=== PATIENT | male | born 1930 | race Hispanic/Latino ===

== ENCOUNTER 2017-03-06 14:18 | Inpatient (IN) | payer MEDICARE, BC ==
[2017-03-06 18:29] VITALS: BMI 30.4
--- NOTE | 2017-03-06 20:02 | CP.PCM.HP ---
Addendum entered and electronically signed by Kathy Triplett MD 03/06/17 23:44: Watery Diarrheas -f/u C-diff toxin -afebrile, vital signs wnl -f/u BMP Original Note: <Kathy Triplett - Last Filed: 03/06/17 23:16> History of Present Illness - History of Present Illness History of Present Illness: 87 y/o M with PMHx of HTN, Macular degeneration, and TIA who was transferred from [facility] for rehabilitation. On Feb, while patient went to ER at [facility] to see his wifehe was c/o anxiety and chest heavyness. Pt was found to be in HTN emergency with elevated troponin, SR with LBBB and discordant ST elevation in V1, V2. Pt had a cardiac cath, and now is s/p NATHAN to prox LAD on 03/02/17. Patient was transferred to our acute reyes center for further management of current medical condition. Patient was seen and examined at bedside. Patient was seen alert, oriented x 3, and denies cp, SOB, abd pain, N/V, urinary symptoms, dizziness. Patient reports approximately 6 daily watery nonbloody diarrheas since Sunday while he was admitted in prior hospital, denies associated symptoms. PMD: Dr. Vazquez Present on Admission - Present on Admission Any Indicators Present on Admission: No History of DVT/PE: No History of Uncontrolled Diabetes: No Urinary Catheter: No Decubitus Ulcer Present: No Review of Systems - Review of Systems All systems: reviewed and no additional remarkable complaints except (as per HPI ) Past Patient History - Past Medical History & Family History Past Medical History?: Yes - Past Social History Smoking Status: Never Smoked - CARDIAC Hx Congestive Heart Failure: Yes Hx Hypertension: Yes - RENAL Hx Chronic Kidney Disease: No Hx Dialysis: No - HEMATOLOGICAL/ONCOLOGICAL Hx AIDS: No Hx Human Immunodeficiency Virus (HIV): No - MUSCULOSKELETAL/RHEUMATOLOGICAL Hx Falls: No Hx Unsteady Gait: Yes - PSYCHIATRIC Hx Substance Use: No - ANESTHESIA Hx Anesthesia: No Hx Anesthesia Reactions: No Meds Allergies/Adverse Reactions: Allergies Allergy/AdvReac Type Severity Reaction Status Date / Time buspirone [From BuSpar] Allergy RASH Verified 03/06/17 15:27 Penicillins Allergy URTICARIA Verified 03/06/17 15:27 Physical Exam - Constitutional Appears: Non-toxic, No Acute Distress - Eye Exam Eye Exam: Normal appearance - ENT Exam ENT Exam: Mucous Membranes Moist - Respiratory Exam Respiratory Exam: Clear to Auscultation Bilateral, NORMAL BREATHING PATTERN - Cardiovascular Exam Cardiovascular Exam: REGULAR RHYTHM, RRR, +S1, +S2 - GI/Abdominal Exam GI & Abdominal Exam: Normal Bowel Sounds, Soft. absent: Distended, Guarding, Rigid, Tenderness - Extremities Exam Extremities exam: Positive for: pedal edema (pitting 1+ in lower extremitiesz). Negative for: calf tenderness - Back Exam Back exam: NORMAL INSPECTION. absent: CVA tenderness (L), CVA tenderness (R) - Neurological Exam Neurological exam: Alert, CN II-XII Intact, Oriented x3 - Psychiatric Exam Psychiatric exam: Normal Affect, Normal Mood - Skin Skin Exam: Dry, Intact, Normal Color Results - Vital Signs Recent Vital Signs: Last Vital Signs Temp 98.0 F 03/06/17 20:01 Pulse 67 03/06/17 20:01 Resp 18 03/06/17 20:01 BP 143/76 03/06/17 20:01 Pulse Ox 98 03/06/17 20:01 Assessment & Plan - Assessment and Plan (Free Text) Assessment: 87 y/o M s/p Anterior STEMI, s/p NATHAN to prox LAD being admitted for rehabilitation. Plan: Gait abnormality and weakness -Acute rehab -PT/OT evaluation and treatment Anterior STEMI s/p NATHAN to prox LAD -stable -c/w aspirin 81 mg -c/w ticagretol 90 mg BID c/w atorvastatin 80 mg -c/w carvedilol 25 mg BID -c/w Lisinopril 20 mg BID -heart healthy diet HTN -chronic, controlled -c/w discharge meds -c/w amlodipine 10 mg CHF -No in exacerbation -c/w Furosemide 40 mg H/O TIA -chronic -asymptomatic -c/w aspirin DVT prophylaxis -lovenox 40 mg SC - Date & Time Date: 03/06/17 Time: 20:20 <Charly Vazquez - Last Filed: 03/07/17 07:01> Results - Vital Signs Recent Vital Signs: Last Vital Signs Temp 98.0 F 03/06/17 20:01 Pulse 67 03/06/17 22:04 Resp 18 03/06/17 20:01 BP 143/76 03/06/17 22:04 Pulse Ox 98 03/06/17 20:01 - Labs Result Diagrams: 03/07/17 05:25 03/07/17 05:25 Labs: Laboratory Results - last 24 hr 03/07/17 03/07/17 05:25 05:25 WBC 9.6 RBC 4.39 L Hgb 13.7 Hct 40.3 MCV 91.8 MCH 31.3 H MCHC 34.1 RDW 13.6 Plt Count 221 Sodium 141 Potassium 3.7 Chloride 107 Carbon Dioxide 24 Anion Gap 14 BUN 25 H Creatinine 1.5 Est GFR ( Amer) 53 Est GFR (Non-Af Amer) 44 Random Glucose 88 Calcium 8.3 L Attending/Attestation - Attestation I have personally seen and examined this patient.: Yes I have fully participated in the care of the patient.: Yes I have reviewed all pertinent clinical information: Yes
[2017-03-07 06:30] LABS: HEMATOCRIT 40.3 % (35.0-51.0); MEAN CELL VOLUME 91.8 fl (80.0-94.0); MEAN CORPUSCULAR HEMOGLOBIN 31.3 pg (27.0-31.0); MEAN CORPUSCULAR HGB CONC 34.1 g/dL (33.0-37.0); RED CELL DISTRIBUTION WIDTH 13.6 % (11.5-14.5); WHITE BLOOD COUNT 9.6 K/uL (4.8-10.8)
[2017-03-07 06:47] LABS: CALCIUM 8.3 mg/dL (8.4-10.2); POTASSIUM 3.7 MMOL/L (3.6-5.0)
--- NOTE | 2017-03-07 08:24 | CP.PCM.PN ---
<DarellJoseph - Last Filed: 03/07/17 10:47> Subjective - Date & Time of Evaluation Date of Evaluation: 03/07/17 Time of Evaluation: 07:20 - Subjective Subjective: 87 y/o M admitted last night to subacute rehab for cardiac rehab s/p IN. Patient seen at bedside in not acute distress. Denies CP, SOB, palpitations. He c/o R/hip, thigh weakness that is chronic. His ambulation was limited before IN due to chronic LE weakness. Tolerating PO. Had been having watery diarrheas on admission and C.Diff toxine is pending. Objective - Vital Signs/Intake and Output Vital Signs (last 24 hours): Temp Pulse Resp BP Pulse Ox 98.0 F 67 18 143/76 98 03/06/17 20:01 03/06/17 22:04 03/06/17 20:01 03/06/17 22:04 03/06/17 20:01 - Medications Medications: Current Medications Amlodipine Besylate (Norvasc) 10 mg PO DAILY [facility] Aspirin (Ecotrin) 81 mg PO DAILY [facility] Atorvastatin Calcium (Lipitor) 80 mg PO HS [facility] Last Admin: 03/06/17 22:03 Dose: 80 mg Carvedilol (Coreg) 25 mg PO BID [facility] Enoxaparin Sodium (Lovenox) 40 mg SC DAILY [facility] PRN Reason: Protocol Furosemide (Lasix) 40 mg PO DAILY [facility] Lisinopril (Zestril) 20 mg PO Q12 [facility] Last Admin: 03/06/17 22:04 Dose: 20 mg Pantoprazole Sodium (Protonix Ec Tab) 40 mg PO DAILY [facility] Ticagrelor (Brilinta) 90 mg PO Q12 [facility] Last Admin: 03/06/17 22:03 Dose: 90 mg - Labs Labs: 03/07/17 05:25 03/07/17 05:25 - Constitutional Appears: Non-toxic - Eye Exam Eye Exam: EOMI - ENT Exam ENT Exam: Mucous Membranes Moist - Respiratory Exam Respiratory Exam: Clear to Ausculation Bilateral, NORMAL BREATHING PATTERN. absent: Rales, Wheezes - Cardiovascular Exam Cardiovascular Exam: REGULAR RHYTHM, +S1, +S2 - GI/Abdominal Exam GI & Abdominal Exam: Soft, Normal Bowel Sounds. absent: Tenderness - Extremities Exam Extremities Exam: Full ROM, Normal Capillary Refill - Neurological Exam Neurological Exam: Alert, Awake, Oriented x3 Neuro motor strength exam: Left Upper Extremity: 4, Right Upper Extremity: 4, Left Lower Extremity: 3, Right Lower Extremity: 3 - Psychiatric Exam Psychiatric exam: Normal Affect, Normal Mood - Skin Skin Exam: Normal Color, Warm Assessment and Plan - Assessment and Plan (Free Text) Assessment: 87 y/o M s/p Anterior STEMI, s/p NATHAN to prox LAD being admitted for rehabilitation. Cardiac rehab S/P IN -Acute rehab -PT/OT evaluation and treatment -Physiatry consulted. Will f/u recs Anterior STEMI s/p drug eluting stent placement to prox LAD -stable -c/w aspirin 81 mg -c/w ticagretol 90 mg BID -c/w atorvastatin 80 mg -c/w carvedilol 25 mg BID -c/w Lisinopril 20 mg BID -heart healthy diet -Cardiology consulted(Titi Ladd). Will follow recs. HTN -chronic, controlled -c/w amlodipine 10 mg daily and lisinopril 20 mg BID Hx of CHF Unknown type. On Furosemide PO F/U Echocardiogram DVT prophylaxis -lovenox 40 mg SC <Charly Vazquez A - Last Filed: 03/12/17 16:41> Objective - Vital Signs/Intake and Output Vital Signs (last 24 hours): Temp Pulse Resp BP Pulse Ox 98.1 F 55 L 20 145/75 98 03/12/17 08:50 03/12/17 16:13 03/12/17 08:50 03/12/17 08:50 03/12/17 16:13 - Medications Medications: Current Medications Aspirin (Ecotrin) 81 mg PO DAILY [facility] Last Admin: 03/12/17 08:43 Dose: 81 mg Atorvastatin Calcium (Lipitor) 80 mg PO HS [facility] Last Admin: 03/11/17 21:24 Dose: 80 mg Carvedilol (Coreg) 25 mg PO BID@0900,2100 [facility] Last Admin: 03/12/17 08:44 Dose: 25 mg Enoxaparin Sodium (Lovenox) 40 mg SC DAILY [facility] PRN Reason: Protocol Last Admin: 03/12/17 08:42 Dose: 40 mg Lisinopril (Zestril) 20 mg PO DAILY [facility] Last Admin: 03/12/17 08:43 Dose: 20 mg Pantoprazole Sodium (Protonix Ec Tab) 40 mg PO DAILY [facility] Last Admin: 03/12/17 08:43 Dose: 40 mg Ticagrelor (Brilinta) 90 mg PO Q12 [facility] Last Admin: 03/12/17 08:43 Dose: 90 mg - Labs Labs: 03/11/17 05:30 03/11/17 05:30 Attending/Attestation - Attestation I have personally seen and examined this patient.: Yes I have fully participated in the care of the patient.: Yes I have reviewed all pertinent clinical information, including history, physical exam and plan: Yes
[2017-03-07] MEDS: Pantoprazole 40 mg EC Tab PO SCH (09:08)
[2017-03-07] MEDS: Enoxaparin 40 mg Syringe SC SCH (10:26)
--- NOTE | 2017-03-07 12:17 | CP.PCM.CON ---
History of Present Illness - History of Present Illness History of Present Illness: This 87- year-old man had urgently summoned an ambulance to take his to the emergency room when she started to develop cerebrovascular accident. He followed her to the emergency room where xu Putnam remarked that he looked very anxious and recommended that he have an electrocardiogram. In a very short period of time he found himself having a coronary angiogram and subsequently had left anterior descending artery stented. The patient denies having experienced any chest pain. He does admit to feeling anxious at the time of arriving in the emergency room since his had just been brought in. The patient gives history of being hypertensive for more than 8 or 9 years and has taken medications regularly. He gives history of having had fainting episodes approximately 8 or 10 years back and again approximately 6 years back. The patient uses a cane and a crutch to get around. He also gives history of having been told of a transient ischemic episode though no motor or speech deficit ever occurred. He has never been a smoker or diabetic and has never suffered a prior myocardial infarction or symptoms of congestive cardiac failure. His mother was a diabetic and had had cardiac issues. The patient was seen in the acute rehabilitation section of the hospital. He was alert awake over and afebrile and was able to lie virtually flat and carry on a conversation. His heart rate was 64 bpm regular and his blood pressure was 164/80 mmHg. His jugular venous pressure was not elevated and there was no edema over his lower extremities. His pedal pulses were feeble but distinctive present. There were no carotid bruits. His extremities are warm. His nailbeds were pink. The apex was not palpable. The first and second heart sounds were normal. There was no murmur or gallop. There were no rales. Electrocardiogram taken at 11 AM on february showed sinus rhythm with a left bundle branch block with attendant ST-T abnormalities secondary to it. The patient subsequently underwent coronary stenting at 4 PM the same day. Today 's labs show marginally elevated troponin. Impression: Recent coronary stenting in a patient with left bundle branch block and atypical presentation (??) And elevated troponin 5 days following PCI. History of hypertension and ? TIA. Patient's labs from his emergency room visit will be evaluated to find out if troponins were elevated prior to PCI. It is very likely that the elevated troponins represent myocyte injury during PCI. An echocardiogram will be obtained to evaluate his left ventricular systolic function and to figure out if he needs continued furosemide. At this point is hemodynamically stable. Past Patient History - Past Medical History & Family History Past Medical History?: Yes - Past Social History Smoking Status: Never Smoked - CARDIAC Hx Congestive Heart Failure: Yes Hx Hypertension: Yes - RENAL Hx Chronic Kidney Disease: No Hx Dialysis: No - HEMATOLOGICAL/ONCOLOGICAL Hx AIDS: No Hx Human Immunodeficiency Virus (HIV): No - MUSCULOSKELETAL/RHEUMATOLOGICAL Hx Falls: No Hx Unsteady Gait: Yes - PSYCHIATRIC Hx Substance Use: No - ANESTHESIA Hx Anesthesia: No Hx Anesthesia Reactions: No Meds Allergies/Adverse Reactions: Allergies Allergy/AdvReac Type Severity Reaction Status Date / Time buspirone [From BuSpar] Allergy RASH Verified 03/06/17 15:27 Penicillins Allergy URTICARIA Verified 03/06/17 15:27 - Medications Medications: Current Medications Amlodipine Besylate (Norvasc) 10 mg PO DAILY [facility] Last Admin: 03/07/17 09:07 Dose: 10 mg Aspirin (Ecotrin) 81 mg PO DAILY [facility] Last Admin: 03/07/17 09:06 Dose: 81 mg Atorvastatin Calcium (Lipitor) 80 mg PO HS [facility] Last Admin: 03/06/17 22:03 Dose: 80 mg Carvedilol (Coreg) 25 mg PO BID [facility] Last Admin: 03/07/17 09:06 Dose: 25 mg Enoxaparin Sodium (Lovenox) 40 mg SC DAILY [facility] PRN Reason: Protocol Furosemide (Lasix) 40 mg PO DAILY [facility] Last Admin: 03/07/17 09:06 Dose: 40 mg Lisinopril (Zestril) 20 mg PO Q12 [facility] Last Admin: 03/07/17 09:07 Dose: 20 mg Pantoprazole Sodium (Protonix Ec Tab) 40 mg PO DAILY [facility] Last Admin: 03/07/17 09:08 Dose: 40 mg Ticagrelor (Brilinta) 90 mg PO Q12 [facility] Last Admin: 03/07/17 09:07 Dose: 90 mg Results - Vital Signs Recent Vital Signs: Last Vital Signs Temp 97.9 F 03/07/17 08:28 Pulse 88 03/07/17 09:07 Resp 20 03/07/17 08:28 BP 145/69 03/07/17 09:07 Pulse Ox 97 03/07/17 08:28 - Labs Result Diagrams: 03/07/17 05:25 03/07/17 05:25 Labs: Laboratory Results - last 24 hr 03/07/17 03/07/17 03/07/17 05:25 05:25 10:05 WBC 9.6 RBC 4.39 L Hgb 13.7 Hct 40.3 MCV 91.8 MCH 31.3 H MCHC 34.1 RDW 13.6 Plt Count 221 Sodium 141 Potassium 3.7 Chloride 107 Carbon Dioxide 24 Anion Gap 14 BUN 25 H Creatinine 1.5 Est GFR ( Amer) 53 Est GFR (Non-Af Amer) 44 Random Glucose 88 Calcium 8.3 L Troponin I 0.4160 H*
--- NOTE | 2017-03-07 12:54 | CP.PCM.CON ---
History of Present Illness - History of Present Illness History of Present Illness: Dr Sandhu PMR consultation on Andrew Belcher, born 1930, who has been admitted to [facility] following an admission with NSTEMI surrounding his 's CVA. He had coronary stenting. He has limited function requiring a wheelchair and walker [employer]. He has need for a short acute care stay prior to d/c home. His has been admitted to the unit as well post CVA Review of Systems - Constitutional Constitutional: absent: Anorexia, Chills - EENT Eyes: absent: Change in Vision, Dry Eye Nose/Mouth/Throat: absent: Nasal Congestion - Cardiovascular Cardiovascular: absent: Chest Pain, Claudication - Respiratory Respiratory: absent: Dyspnea - Gastrointestinal Gastrointestinal: absent: Belching, Constipation - Musculoskeletal Musculoskeletal: absent: Back Pain - Integumentary Integumentary: absent: Bleeding Lesions - Neurological Neurological: absent: Abnormal Movements, Radicular Pain Past Patient History - Past Medical History & Family History Past Medical History?: Yes - Past Social History Smoking Status: Never Smoked Alcohol: Occasional Drugs: Denies Home Situation {Lives}: With Family - CARDIAC Hx Congestive Heart Failure: Yes Hx Hypertension: Yes - RENAL Hx Chronic Kidney Disease: No Hx Dialysis: No - HEMATOLOGICAL/ONCOLOGICAL Hx AIDS: No Hx Human Immunodeficiency Virus (HIV): No - MUSCULOSKELETAL/RHEUMATOLOGICAL Hx Falls: No Hx Unsteady Gait: Yes - PSYCHIATRIC Hx Substance Use: No - ANESTHESIA Hx Anesthesia: No Hx Anesthesia Reactions: No Meds Allergies/Adverse Reactions: Allergies Allergy/AdvReac Type Severity Reaction Status Date / Time buspirone [From BuSpar] Allergy RASH Verified 03/06/17 15:27 Penicillins Allergy URTICARIA Verified 03/06/17 15:27 - Medications Medications: Current Medications Amlodipine Besylate (Norvasc) 10 mg PO DAILY [facility] Last Admin: 03/07/17 09:07 Dose: 10 mg Aspirin (Ecotrin) 81 mg PO DAILY [facility] Last Admin: 03/07/17 09:06 Dose: 81 mg Atorvastatin Calcium (Lipitor) 80 mg PO HS [facility] Last Admin: 03/06/17 22:03 Dose: 80 mg Carvedilol (Coreg) 25 mg PO BID [facility] Last Admin: 03/07/17 09:06 Dose: 25 mg Enoxaparin Sodium (Lovenox) 40 mg SC DAILY [facility] PRN Reason: Protocol Last Admin: 03/07/17 10:26 Dose: 40 mg Furosemide (Lasix) 40 mg PO DAILY [facility] Last Admin: 03/07/17 09:06 Dose: 40 mg Lisinopril (Zestril) 20 mg PO Q12 [facility] Last Admin: 03/07/17 09:07 Dose: 20 mg Pantoprazole Sodium (Protonix Ec Tab) 40 mg PO DAILY [facility] Last Admin: 03/07/17 09:08 Dose: 40 mg Ticagrelor (Brilinta) 90 mg PO Q12 [facility] Last Admin: 03/07/17 09:07 Dose: 90 mg Physical Exam - Constitutional Appears: Non-toxic - Head Exam Head Exam: ATRAUMATIC, NORMAL INSPECTION, NORMOCEPHALIC - Eye Exam Eye Exam: EOMI - ENT Exam ENT Exam: Mucous Membranes Moist - Respiratory Exam Respiratory Exam: NORMAL BREATHING PATTERN - Cardiovascular Exam Cardiovascular Exam: REGULAR RHYTHM - GI/Abdominal Exam GI & Abdominal Exam: Normal Bowel Sounds - Extremities Exam Extremities exam: Negative for: calf tenderness, joint swelling - Neurological Exam Neurological exam: Alert, CN II-XII Intact, Oriented x3 - Skin Skin Exam: Warm Results - Vital Signs Recent Vital Signs: Last Vital Signs Temp 97.9 F 03/07/17 08:28 Pulse 88 03/07/17 09:07 Resp 20 03/07/17 08:28 BP 145/69 03/07/17 09:07 Pulse Ox 97 03/07/17 08:28 - Labs Result Diagrams: 03/07/17 05:25 03/07/17 05:25 Labs: Laboratory Results - last 24 hr 03/07/17 03/07/17 03/07/17 05:25 05:25 10:05 WBC 9.6 RBC 4.39 L Hgb 13.7 Hct 40.3 MCV 91.8 MCH 31.3 H MCHC 34.1 RDW 13.6 Plt Count 221 Sodium 141 Potassium 3.7 Chloride 107 Carbon Dioxide 24 Anion Gap 14 BUN 25 H Creatinine 1.5 Est GFR ( Amer) 53 Est GFR (Non-Af Amer) 44 Random Glucose 88 Calcium 8.3 L Troponin I 0.4160 H* Assessment & Plan - Assessment and Plan (Free Text) Assessment: PT/OT to continue to help increase functional independence Team conference for d/c planning Pain: controlled Vascular: no evidence of DVT GI: No evidence of constipation or diarrhea Patient is an excellent acute rehabilitation candidate and will have focused PT , OT and recreational therapy to help facilitate a safe and appropriate d/c plan impairment code 09
--- NOTE | 2017-03-07 13:06 | PCM.OPOC ---
Physiatry Overall Plan of Care - Overall Plan of Care Estimated Length of Stay in Weeks: 1 Rehab Impairment: Mobility, Balance Etiologic Diagnosis: Other Rehab/Medical Prognosis: Good - Anticipated Interventions Physical Therapy:: Yes Occupational Therapy:: Yes Speech Therapy:: No Recreational Therapy:: Yes - Therapy Goals Bed Mobility: Supervision Ambulation: Supervision Functional Positional Changes:: Supervision - Discharge Plan Discharge Destination: Home
--- NOTE | 2017-03-07 16:52 | CARD ---
APPROVED REPORT EXAM: Two-dimensional and M-mode echocardiogram with Doppler and color Doppler. Other Information Quality : GoodRhythm : LBBB INDICATION Abnormal EKG/Arrhythmia 2D DIMENSIONS IVSd1.61 (0.7-1.1cm)LVDd4.35 (3.9-5.9cm) LVOT Diameter2.70 (1.8-2.4cm)PWd1.17 (0.7-1.1cm) IVSs1.69 (0.8-1.2cm)LVDs2.98 (2.5-4.0cm) FS (%) 31.4 %PWs2.06 (0.8-1.2cm) LVEF (%)55.0 (>50%) M-Mode DIMENSIONS Left Atrium (MM)4.93 (2.5-4.0cm)IVSd1.79 (0.7-1.1cm) Aortic Root3.47 (2.2-3.7cm)LVDd4.33 (4.0-5.6cm) Aortic Cusp Exc.1.65 (1.5-2.0cm)PWd1.79 (0.7-1.1cm) IVSs1.95 cmFS (%) 25 % LVDs3.24 (2.0-3.8cm)PWs2.32 cm Aortic Valve AoV Peak Ntfaeftq171.0cm/sAoV VTI23.6cmAO Peak GR.7mmHg LVOT Peak Qvbueglm695.7cm/sLVOT VTI21.20cmAO Mean GR.4mmHg MANDI (VMAX)2.94bw3BFZ (VTI)2.25cm2 Mitral Valve MV E Tatvmfee70.0cm/sMV DECEL [id number] A Tbxghmjr227.4cm/s MV YCT54cgC/A ratio0.5MVA (PHT)2.62cm2 TDI E/Lateral E'0.0E/Medial E'0.0 Pulmonary Valve PV Peak Xjidijko321.4cm/s Tricuspid Valve TR Peak Ctojxjcb402ao/sRAP ZJLERXUX34qaXvRY Peak Gr.16mmHg BUBD33wmCf LEFT VENTRICLE The left ventricle is normal size. There is mild to moderate concentric left ventricular hypertrophy. The left ventricular ejection fraction is within the normal range. flattened septum Transmitral Doppler flow pattern is Grade I-abnormal relaxation pattern. RIGHT VENTRICLE The right ventricle is normal size. There is normal right ventricular wall thickness. The right ventricular systolic function is normal. ATRIA The left atrium is mildly dilated. The right atrium size is normal. AORTIC VALVE The aortic valve is severely sclerotic. There is trace aortic regurgitation. There is trace valvular aortic stenosis. MITRAL VALVE The mitral valve is moderately thickened. There is no mitral valve stenosis. There is no mitral valve regurgitation noted. TRICUSPID VALVE The tricuspid valve is normal in structure. There is no tricuspid valve regurgitation noted. PULMONIC VALVE The pulmonary valve is normal in structure. There is no pulmonic valvular regurgitation. GREAT VESSELS The aortic root is normal in size. The IVC was not visualized. PERICARDIAL EFFUSION The pericardium appears normal. <Conclusion> The left ventricle is normal size. There is mild to moderate concentric left ventricular hypertrophy. The left ventricular ejection fraction is within the normal range. flattened septum Transmitral Doppler flow pattern is Grade I-abnormal relaxation pattern. The aortic valve is severely sclerotic.
--- NOTE | 2017-03-07 17:46 | CP.PCM.CON ---
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 Review of Systems - Constitutional Constitutional: As Per HPI - EENT Eyes: As Per HPI Ears: As Per HPI Nose/Mouth/Throat: As Per HPI - Cardiovascular Cardiovascular: As Per HPI - Respiratory Respiratory: As Per HPI - Gastrointestinal Gastrointestinal: As Per HPI - Genitourinary Genitourinary: As Per HPI - Musculoskeletal Musculoskeletal: As Per HPI - Integumentary Integumentary: As Per HPI, Change in Nails - Neurological Neurological: As Per HPI - Endocrine Endocrine: As Per HPI Past Patient History - Past Medical History & Family History Past Medical History?: Yes - Past Social History Smoking Status: Never Smoked Alcohol: Occasional Drugs: Denies Home Situation {Lives}: With Family - CARDIAC Hx Congestive Heart Failure: Yes Hx Hypertension: Yes - RENAL Hx Chronic Kidney Disease: No Hx Dialysis: No - HEMATOLOGICAL/ONCOLOGICAL Hx AIDS: No Hx Human Immunodeficiency Virus (HIV): No - MUSCULOSKELETAL/RHEUMATOLOGICAL Hx Falls: No Hx Unsteady Gait: Yes - PSYCHIATRIC Hx Substance Use: No - ANESTHESIA Hx Anesthesia: No Hx Anesthesia Reactions: No Meds Allergies/Adverse Reactions: Allergies Allergy/AdvReac Type Severity Reaction Status Date / Time buspirone [From BuSpar] Allergy RASH Verified 03/06/17 15:27 Penicillins Allergy URTICARIA Verified 03/06/17 15:27 - Medications Medications: Current Medications Amlodipine Besylate (Norvasc) 10 mg PO DAILY [facility] Last Admin: 03/07/17 09:07 Dose: 10 mg Aspirin (Ecotrin) 81 mg PO DAILY [facility] Last Admin: 03/07/17 09:06 Dose: 81 mg Atorvastatin Calcium (Lipitor) 80 mg PO HS [facility] Last Admin: 03/06/17 22:03 Dose: 80 mg Carvedilol (Coreg) 25 mg PO BID [facility] Last Admin: 03/07/17 17:35 Dose: 25 mg Enoxaparin Sodium (Lovenox) 40 mg SC DAILY [facility] PRN Reason: Protocol Last Admin: 03/07/17 10:26 Dose: 40 mg Furosemide (Lasix) 40 mg PO DAILY [facility] Last Admin: 03/07/17 09:06 Dose: 40 mg Lisinopril (Zestril) 20 mg PO Q12 [facility] Last Admin: 03/07/17 09:07 Dose: 20 mg Pantoprazole Sodium (Protonix Ec Tab) 40 mg PO DAILY [facility] Last Admin: 03/07/17 09:08 Dose: 40 mg Ticagrelor (Brilinta) 90 mg PO Q12 [facility] Last Admin: 03/07/17 09:07 Dose: 90 mg Physical Exam - Extremities Exam Additional comments: 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 DP,PT PULSES DIMINISHED B/L .INTEGUMENT INTACT B/L NEURO GROSSLY INTACT B/L NO GROSS ORTHOPEDIC DEFORMITIES NOTED B/L Results - Vital Signs Recent Vital Signs: Last Vital Signs Temp 97.9 F 03/07/17 08:28 Pulse 71 03/07/17 17:35 Resp 20 03/07/17 08:28 BP 131/64 03/07/17 17:35 Pulse Ox 98 03/07/17 15:35 - Labs Result Diagrams: 03/07/17 05:25 03/07/17 05:25 Labs: Laboratory Results - last 24 hr 03/07/17 03/07/17 03/07/17 05:25 05:25 10:05 WBC 9.6 RBC 4.39 L Hgb 13.7 Hct 40.3 MCV 91.8 MCH 31.3 H MCHC 34.1 RDW 13.6 Plt Count 221 Sodium 141 Potassium 3.7 Chloride 107 Carbon Dioxide 24 Anion Gap 14 BUN 25 H Creatinine 1.5 Est GFR ( Amer) 53 Est GFR (Non-Af Amer) 44 Random Glucose 88 Calcium 8.3 L Troponin I 0.4160 H* Assessment & Plan - Assessment and Plan (Free Text) Assessment: A/PAINFUL MAGALY HORN NAILS X 10 Plan: P/DEBRIDE 10 PAINFUL IFEOMA HORN NAILS .
--- NOTE | 2017-03-07 18:02 | CARD ---
APPROVED REPORT EKG Measurement Heart [id number] <Conclusion> Sinus rhythm with fusion complexes Possible Left atrial enlargement Left bundle branch block Abnormal ECG
--- NOTE | 2017-03-08 08:48 | CP.PCM.PN ---
Subjective - Date & Time of Evaluation Date of Evaluation: 03/08/17 Time of Evaluation: 08:30 - Subjective Subjective: Symptomfree, participated in rehab without difficulty BP 134/70 mm Hg (had a syst BP of 102 mm Hg yesterday) Echo done yesterday shows Abnormal septal motion typical of LBBB Overall syst performance appears preserved LV diastolic dysfunction+ Troponin levels elevated and resolving Review of labs from ER at [facility] [place] (drawn at 11:52 AM) show Tropinin levels of 0.56mgm (pt's MS would have started approx 6 hrs before??) Chest pain free and hemodynamically stable Antihypertensives adjusted. Objective - Vital Signs/Intake and Output Vital Signs (last 24 hours): Temp Pulse Resp BP Pulse Ox 97.4 F L 64 20 126/69 97 03/07/17 20:00 03/07/17 23:00 03/07/17 23:00 03/07/17 23:00 03/07/17 23:00 - Medications Medications: Current Medications Aspirin (Ecotrin) 81 mg PO DAILY [facility] Last Admin: 03/07/17 09:06 Dose: 81 mg Atorvastatin Calcium (Lipitor) 80 mg PO HS [facility] Last Admin: 03/07/17 21:24 Dose: 80 mg Carvedilol (Coreg) 25 mg PO BID [facility] Last Admin: 03/07/17 17:35 Dose: 25 mg Enoxaparin Sodium (Lovenox) 40 mg SC DAILY [facility] PRN Reason: Protocol Last Admin: 03/07/17 10:26 Dose: 40 mg Lisinopril (Zestril) 20 mg PO DAILY [facility] Pantoprazole Sodium (Protonix Ec Tab) 40 mg PO DAILY [facility] Last Admin: 03/07/17 09:08 Dose: 40 mg Ticagrelor (Brilinta) 90 mg PO Q12 [facility] Last Admin: 03/07/17 21:24 Dose: 90 mg - Labs Labs: 03/07/17 05:25 03/07/17 05:25
[2017-03-08] MEDS: Enoxaparin 40 mg Syringe SC SCH (09:23)
[2017-03-08] MEDS: Pantoprazole 40 mg EC Tab PO SCH (09:25)
--- NOTE | 2017-03-08 09:47 | CP.PCM.PN ---
Addendum entered and electronically signed by Joseph Lozoya MD 03/08/17 09: 58: Lisinopril dose decreased to 20 mg daily and norvasc DCed after evaluated by Cardiology Original Note: <Joseph Lozoya - Last Filed: 03/08/17 09:54> Subjective - Date & Time of Evaluation Date of Evaluation: 03/08/17 Time of Evaluation: 07:00 - Subjective Subjective: 87 y/o M seen at bedside this morning in not acute distress, good spirits. Denies CP, palpitations, SOB, vomiting. He is tolerating PO. Still c/o 3-4 soft BM per day. C-Dif toxine negative. Patient had 1 episode of hypotension overnight that resolved spontaneously. He started receiving PT treatment Yesterday and tolerated well. Echo results reviewed. BP meds to be readjusted. Objective - Vital Signs/Intake and Output Vital Signs (last 24 hours): Temp Pulse Resp BP Pulse Ox 98.0 F 65 21 131/58 L 97 03/08/17 08:49 03/08/17 09:26 03/08/17 08:49 03/08/17 09:26 03/08/17 08:49 - Medications Medications: Current Medications Aspirin (Ecotrin) 81 mg PO DAILY [facility] Last Admin: 03/08/17 09:24 Dose: 81 mg Atorvastatin Calcium (Lipitor) 80 mg PO HS [facility] Last Admin: 03/07/17 21:24 Dose: 80 mg Carvedilol (Coreg) 25 mg PO BID [facility] Last Admin: 03/08/17 09:24 Dose: 25 mg Enoxaparin Sodium (Lovenox) 40 mg SC DAILY [facility] PRN Reason: Protocol Last Admin: 03/08/17 09:23 Dose: 40 mg Lisinopril (Zestril) 20 mg PO DAILY [facility] Last Admin: 03/08/17 09:26 Dose: 20 mg Pantoprazole Sodium (Protonix Ec Tab) 40 mg PO DAILY [facility] Last Admin: 03/08/17 09:25 Dose: 40 mg Ticagrelor (Brilinta) 90 mg PO Q12 [facility] Last Admin: 03/08/17 09:23 Dose: 90 mg - Labs Labs: 03/07/17 05:25 03/07/17 05:25 - Constitutional Appears: Non-toxic, No Acute Distress - Eye Exam Eye Exam: EOMI, PERRL - ENT Exam ENT Exam: Mucous Membranes Moist - Respiratory Exam Respiratory Exam: Clear to Ausculation Bilateral, NORMAL BREATHING PATTERN. absent: Rales - Cardiovascular Exam Cardiovascular Exam: REGULAR RHYTHM, +S1, +S2. absent: Murmur - GI/Abdominal Exam GI & Abdominal Exam: Soft, Normal Bowel Sounds. absent: Distended, Tenderness - Extremities Exam Extremities Exam: Normal Capillary Refill. absent: Calf Tenderness - Neurological Exam Neurological Exam: Alert, Awake, Oriented x3 Neuro motor strength exam: Left Upper Extremity: 4, Right Upper Extremity: 4, Left Lower Extremity: 3, Right Lower Extremity: 3 - Psychiatric Exam Psychiatric exam: Normal Affect, Normal Mood - Skin Skin Exam: Normal Color, Warm Assessment and Plan - Assessment and Plan (Free Text) Assessment: 87 y/o M s/p Anterior STEMI, s/p NATHAN to prox LAD being admitted for rehabilitation. Cardiac rehab S/P [place] -Acute rehab -PT/OT evaluation and treatment -Physiatry consulted. Will f/u recs Anterior STEMI s/p drug eluting stent placement to prox LAD -stable -c/w aspirin 81 mg -c/w ticagretol 90 mg BID -c/w atorvastatin 80 mg -c/w carvedilol 25 mg BID -c/w Lisinopril 20 mg BID -heart healthy diet -Cardiology consulted(Titi Ladd). Will follow recs. -Troponins trending down HTN -chronic, controlled -S/P 1 episode of hypotension overnight -c/w amlodipine 10 mg daily and lisinopril 20 mg BID -Lasix stopped -Amlodipine decreased to 5 mg daily. Hx of CHF Echo: No evident systolic impairment. No LE edema, SOB Will dicontinue lasix for now DVT prophylaxis -lovenox 40 mg SC <Jluis Jteer - Last Filed: 03/09/17 06:48> Objective - Vital Signs/Intake and Output Vital Signs (last 24 hours): Temp Pulse Resp BP Pulse Ox 97.9 F 65 20 110/68 95 03/08/17 20:05 03/08/17 20:05 03/08/17 20:05 03/08/17 20:05 03/08/17 20:05 - Medications Medications: Current Medications Aspirin (Ecotrin) 81 mg PO DAILY [facility] Last Admin: 03/08/17 09:24 Dose: 81 mg Atorvastatin Calcium (Lipitor) 80 mg PO HS [facility] Last Admin: 03/08/17 21:39 Dose: 80 mg Carvedilol (Coreg) 25 mg PO BID [facility] Last Admin: 03/08/17 18:26 Dose: 25 mg Enoxaparin Sodium (Lovenox) 40 mg SC DAILY [facility] PRN Reason: Protocol Last Admin: 03/08/17 09:23 Dose: 40 mg Lisinopril (Zestril) 20 mg PO DAILY [facility] Last Admin: 03/08/17 09:26 Dose: 20 mg Pantoprazole Sodium (Protonix Ec Tab) 40 mg PO DAILY [facility] Last Admin: 03/08/17 09:25 Dose: 40 mg Ticagrelor (Brilinta) 90 mg PO Q12 [facility] Last Admin: 03/08/17 21:39 Dose: 90 mg - Labs Labs: 03/07/17 05:25 03/07/17 05:25 Attending/Attestation - Attestation I have personally seen and examined this patient.: Yes I have fully participated in the care of the patient.: Yes I have reviewed all pertinent clinical information, including history, physical exam and plan: Yes
--- NOTE | 2017-03-09 07:57 | CP.PCM.PN ---
<DarellJoseph - Last Filed: 03/09/17 09:02> Subjective - Date & Time of Evaluation Date of Evaluation: 03/09/17 Time of Evaluation: 07:30 - Subjective Subjective: 87 y/o M seen at bedside in not acute distress, good spirits. Diarrhea stopped. Denies abd pain, vomiting, nausea, CP, SOB, palpitations or headache. He is tolerating PO. PT going "well" he states he is able to do "everything he is asked". Patient BP meds readjusted Yesterday and since then is controlled. Objective - Vital Signs/Intake and Output Vital Signs (last 24 hours): Temp Pulse Resp BP Pulse Ox 97.9 F 65 20 110/68 95 03/08/17 20:05 03/08/17 20:05 03/08/17 20:05 03/08/17 20:05 03/08/17 20:05 - Medications Medications: Current Medications Aspirin (Ecotrin) 81 mg PO DAILY [facility] Last Admin: 03/08/17 09:24 Dose: 81 mg Atorvastatin Calcium (Lipitor) 80 mg PO HS [facility] Last Admin: 03/08/17 21:39 Dose: 80 mg Carvedilol (Coreg) 25 mg PO BID [facility] Last Admin: 03/08/17 18:26 Dose: 25 mg Enoxaparin Sodium (Lovenox) 40 mg SC DAILY [facility] PRN Reason: Protocol Last Admin: 03/08/17 09:23 Dose: 40 mg Lisinopril (Zestril) 20 mg PO DAILY [facility] Last Admin: 03/08/17 09:26 Dose: 20 mg Pantoprazole Sodium (Protonix Ec Tab) 40 mg PO DAILY [facility] Last Admin: 03/08/17 09:25 Dose: 40 mg Ticagrelor (Brilinta) 90 mg PO Q12 [facility] Last Admin: 03/08/17 21:39 Dose: 90 mg - Labs Labs: 03/07/17 05:25 03/07/17 05:25 - Constitutional Appears: Non-toxic, No Acute Distress - Eye Exam Eye Exam: EOMI - ENT Exam ENT Exam: Mucous Membranes Moist - Respiratory Exam Respiratory Exam: Clear to Ausculation Bilateral, NORMAL BREATHING PATTERN. absent: Rales, Wheezes - Cardiovascular Exam Cardiovascular Exam: REGULAR RHYTHM, +S1, +S2 - GI/Abdominal Exam GI & Abdominal Exam: Soft, Normal Bowel Sounds. absent: Distended, Tenderness - Extremities Exam Extremities Exam: Normal Capillary Refill. absent: Pedal Edema, Tenderness - Neurological Exam Neurological Exam: Alert, Awake, Oriented x3 Neuro motor strength exam: Left Upper Extremity: 4, Right Upper Extremity: 4, Left Lower Extremity: 3, Right Lower Extremity: 3 - Psychiatric Exam Psychiatric exam: Normal Affect, Normal Mood - Skin Skin Exam: Normal Color, Warm Assessment and Plan - Assessment and Plan (Free Text) Assessment: 87 y/o M s/p Anterior STEMI, s/p NATHAN to prox LAD being admitted for rehabilitation. Cardiac rehab S/P [place] -Acute rehab -PT/OT evaluation and treatment -Physiatry consulted. Will f/u recs Anterior STEMI s/p drug eluting stent placement to prox LAD -stable -c/w aspirin 81 mg -c/w ticagretol 90 mg BID -c/w atorvastatin 80 mg -c/w carvedilol 25 mg BID -c/w Lisinopril 20 mg daily -heart healthy diet -Cardiology consulted(Titi Ladd). Will follow recs. -Troponins trending down HTN -chronic, controlled -C/W Lisinopril 20 mg daily -Amlodipine stopped DVT prophylaxis -lovenox 40 mg SC <Charly Vazquez - Last Filed: 03/12/17 16:44> Objective - Vital Signs/Intake and Output Vital Signs (last 24 hours): Temp Pulse Resp BP Pulse Ox 98.1 F 55 L 20 145/75 98 03/12/17 08:50 03/12/17 16:13 03/12/17 08:50 03/12/17 08:50 03/12/17 16:13 - Medications Medications: Current Medications Aspirin (Ecotrin) 81 mg PO DAILY [facility] Last Admin: 03/12/17 08:43 Dose: 81 mg Atorvastatin Calcium (Lipitor) 80 mg PO HS [facility] Last Admin: 03/11/17 21:24 Dose: 80 mg Carvedilol (Coreg) 25 mg PO BID@0900,2100 [facility] Last Admin: 03/12/17 08:44 Dose: 25 mg Enoxaparin Sodium (Lovenox) 40 mg SC DAILY [facility] PRN Reason: Protocol Last Admin: 03/12/17 08:42 Dose: 40 mg Lisinopril (Zestril) 20 mg PO DAILY [facility] Last Admin: 03/12/17 08:43 Dose: 20 mg Pantoprazole Sodium (Protonix Ec Tab) 40 mg PO DAILY [facility] Last Admin: 03/12/17 08:43 Dose: 40 mg Ticagrelor (Brilinta) 90 mg PO Q12 [facility] Last Admin: 03/12/17 08:43 Dose: 90 mg - Labs Labs: 03/11/17 05:30 03/11/17 05:30 Attending/Attestation - Attestation I have personally seen and examined this patient.: Yes I have fully participated in the care of the patient.: Yes I have reviewed all pertinent clinical information, including history, physical exam and plan: Yes
--- NOTE | 2017-03-09 08:29 | CP.PCM.PN ---
Subjective - Date & Time of Evaluation Date of Evaluation: 03/09/17 Time of Evaluation: 08:20 - Subjective Subjective: Has been doing well at PT HR 64 BPM reg BP 138/74 mm Hg No rales, no gallop Antihypertensives have been adjusted down Nurses have been instructed on parameters to hold antihypertensives Objective - Vital Signs/Intake and Output Vital Signs (last 24 hours): Temp Pulse Resp BP Pulse Ox 97.9 F 65 20 110/68 95 03/08/17 20:05 03/08/17 20:05 03/08/17 20:05 03/08/17 20:05 03/08/17 20:05 - Medications Medications: Current Medications Aspirin (Ecotrin) 81 mg PO DAILY [facility] Last Admin: 03/08/17 09:24 Dose: 81 mg Atorvastatin Calcium (Lipitor) 80 mg PO HS [facility] Last Admin: 03/08/17 21:39 Dose: 80 mg Carvedilol (Coreg) 25 mg PO BID [facility] Last Admin: 03/08/17 18:26 Dose: 25 mg Enoxaparin Sodium (Lovenox) 40 mg SC DAILY [facility] PRN Reason: Protocol Last Admin: 03/08/17 09:23 Dose: 40 mg Lisinopril (Zestril) 20 mg PO DAILY [facility] Last Admin: 03/08/17 09:26 Dose: 20 mg Pantoprazole Sodium (Protonix Ec Tab) 40 mg PO DAILY [facility] Last Admin: 03/08/17 09:25 Dose: 40 mg Ticagrelor (Brilinta) 90 mg PO Q12 [facility] Last Admin: 03/08/17 21:39 Dose: 90 mg - Labs Labs: 03/07/17 05:25 03/07/17 05:25
[2017-03-09] MEDS: Enoxaparin 40 mg Syringe SC SCH (08:41)
[2017-03-09] MEDS: Pantoprazole 40 mg EC Tab PO SCH (08:42)
--- NOTE | 2017-03-09 15:10 | CP.PCM.PN ---
Subjective - Date & Time of Evaluation Date of Evaluation: 03/09/17 Time of Evaluation: 15:08 - Subjective Subjective: Patient seen in PT denies cp or sob denies joint pain with ambulation continue current care making good progress and expect d/c home next week with Objective - Vital Signs/Intake and Output Vital Signs (last 24 hours): Temp Pulse Resp BP Pulse Ox 97.9 F 65 20 140/60 98 03/08/17 20:05 03/09/17 09:29 03/08/17 20:05 03/09/17 09:29 03/09/17 09:29 - Medications Medications: Current Medications Aspirin (Ecotrin) 81 mg PO DAILY [facility] Last Admin: 03/09/17 08:42 Dose: 81 mg Atorvastatin Calcium (Lipitor) 80 mg PO HS [facility] Last Admin: 03/08/17 21:39 Dose: 80 mg Carvedilol (Coreg) 25 mg PO BID@0900,2100 [facility] Enoxaparin Sodium (Lovenox) 40 mg SC DAILY [facility] PRN Reason: Protocol Last Admin: 03/09/17 08:41 Dose: 40 mg Lisinopril (Zestril) 20 mg PO DAILY [facility] Last Admin: 03/08/17 09:26 Dose: 20 mg Pantoprazole Sodium (Protonix Ec Tab) 40 mg PO DAILY [facility] Last Admin: 03/09/17 08:42 Dose: 40 mg Ticagrelor (Brilinta) 90 mg PO Q12 [facility] Last Admin: 03/09/17 08:42 Dose: 90 mg - Labs Labs: 03/07/17 05:25 03/07/17 05:25
[2017-03-10] MEDS: Enoxaparin 40 mg Syringe SC SCH (08:30)
[2017-03-10] MEDS: Pantoprazole 40 mg EC Tab PO SCH (09:00)
[2017-03-11 06:58] LABS: HEMATOCRIT 38.4 % (35.0-51.0); MEAN CORPUSCULAR HEMOGLOBIN 31.3 pg (27.0-31.0); MEAN CORPUSCULAR HGB CONC 33.7 g/dL (33.0-37.0); RED CELL DISTRIBUTION WIDTH 13.5 % (11.5-14.5); WHITE BLOOD COUNT 7.8 K/uL (4.8-10.8)
[2017-03-11 07:16] LABS: CALCIUM 8.5 mg/dL (8.4-10.2); POTASSIUM 4.7 MMOL/L (3.6-5.0)
[2017-03-11] MEDS: Pantoprazole 40 mg EC Tab PO SCH (08:58)
[2017-03-11] MEDS: Enoxaparin 40 mg Syringe SC SCH (09:00)
[2017-03-12] MEDS: Enoxaparin 40 mg Syringe SC SCH (08:42)
[2017-03-12] MEDS: Pantoprazole 40 mg EC Tab PO SCH (08:43)
--- NOTE | 2017-03-12 08:58 | CP.PCM.PN ---
Subjective - Date & Time of Evaluation Date of Evaluation: 03/12/17 Time of Evaluation: 08:00 - Subjective Subjective: Doing well during PT, denies unusual DEVINE BP 146/80 mm Hg (No orthostatic hypotension) HR 66 BPM, reg No signs of CHF Seems to tolerate present antihypertensive regimen well Objective - Vital Signs/Intake and Output Vital Signs (last 24 hours): Temp Pulse Resp BP Pulse Ox 98.1 F 66 20 145/75 98 03/12/17 08:50 03/12/17 08:50 03/12/17 08:50 03/12/17 08:50 03/12/17 08:50 - Medications Medications: Current Medications Aspirin (Ecotrin) 81 mg PO DAILY [facility] Last Admin: 03/12/17 08:43 Dose: 81 mg Atorvastatin Calcium (Lipitor) 80 mg PO HS [facility] Last Admin: 03/11/17 21:24 Dose: 80 mg Carvedilol (Coreg) 25 mg PO BID@0900,2100 [facility] Last Admin: 03/12/17 08:44 Dose: 25 mg Enoxaparin Sodium (Lovenox) 40 mg SC DAILY [facility] PRN Reason: Protocol Last Admin: 03/12/17 08:42 Dose: 40 mg Lisinopril (Zestril) 20 mg PO DAILY [facility] Last Admin: 03/12/17 08:43 Dose: 20 mg Pantoprazole Sodium (Protonix Ec Tab) 40 mg PO DAILY [facility] Last Admin: 03/12/17 08:43 Dose: 40 mg Ticagrelor (Brilinta) 90 mg PO Q12 [facility] Last Admin: 03/12/17 08:43 Dose: 90 mg - Labs Labs: 03/11/17 05:30 03/11/17 05:30
--- NOTE | 2017-03-12 09:52 | CP.PCM.PN ---
<DarellJoseph - Last Filed: 03/12/17 10:00> Subjective - Date & Time of Evaluation Date of Evaluation: 03/12/17 Time of Evaluation: 09:30 - Subjective Subjective: 87 y/o M seen at bedside in not acute distress. Denies CP, SOB, palpitations, vomiting, nausea, headache. Afebrile. Patient states he get mild SOB during PT treatment that resolves with rest but he is making progress. No acute event overnight. VS reviewed. Objective - Vital Signs/Intake and Output Vital Signs (last 24 hours): Temp Pulse Resp BP Pulse Ox 98.1 F 66 20 145/75 98 03/12/17 08:50 03/12/17 08:50 03/12/17 08:50 03/12/17 08:50 03/12/17 08:50 - Medications Medications: Current Medications Aspirin (Ecotrin) 81 mg PO DAILY [facility] Last Admin: 03/12/17 08:43 Dose: 81 mg Atorvastatin Calcium (Lipitor) 80 mg PO HS [facility] Last Admin: 03/11/17 21:24 Dose: 80 mg Carvedilol (Coreg) 25 mg PO BID@0900,2100 [facility] Last Admin: 03/12/17 08:44 Dose: 25 mg Enoxaparin Sodium (Lovenox) 40 mg SC DAILY [facility] PRN Reason: Protocol Last Admin: 03/12/17 08:42 Dose: 40 mg Lisinopril (Zestril) 20 mg PO DAILY [facility] Last Admin: 03/12/17 08:43 Dose: 20 mg Pantoprazole Sodium (Protonix Ec Tab) 40 mg PO DAILY [facility] Last Admin: 03/12/17 08:43 Dose: 40 mg Ticagrelor (Brilinta) 90 mg PO Q12 [facility] Last Admin: 03/12/17 08:43 Dose: 90 mg - Labs Labs: 03/11/17 05:30 03/11/17 05:30 - Constitutional Appears: Non-toxic, No Acute Distress - Eye Exam Eye Exam: EOMI - ENT Exam ENT Exam: Mucous Membranes Moist - Respiratory Exam Respiratory Exam: Clear to Ausculation Bilateral, NORMAL BREATHING PATTERN. absent: Rales, Wheezes - Cardiovascular Exam Cardiovascular Exam: REGULAR RHYTHM, +S1, +S2. absent: Murmur - GI/Abdominal Exam GI & Abdominal Exam: Soft, Normal Bowel Sounds. absent: Tenderness - Extremities Exam Extremities Exam: absent: Calf Tenderness, Pedal Edema - Neurological Exam Neurological Exam: Alert, Awake, Oriented x3 - Psychiatric Exam Psychiatric exam: Normal Mood - Skin Skin Exam: Normal Color, Warm Assessment and Plan - Assessment and Plan (Free Text) Assessment: 87 y/o M s/p Anterior STEMI, s/p NATHAN to prox LAD being admitted for rehabilitation. Cardiac rehab S/P [place] -Acute rehab -PT/OT evaluation and treatment -Physiatry consulted. Will f/u recs Anterior STEMI s/p drug eluting stent placement to prox LAD -stable -C/W current plan and meds -heart healthy diet -Cardiology consulted(Titi Ladd). Will follow recs. HTN -chronic, controlled -C/W Lisinopril 20 mg daily -Doing well with current plan DVT prophylaxis -lovenox 40 mg SC <Jluis Jeter - Last Filed: 03/13/17 06:35> Objective - Vital Signs/Intake and Output Vital Signs (last 24 hours): Temp Pulse Resp BP Pulse Ox 98.6 F 56 L 20 140/70 97 03/12/17 20:40 03/12/17 21:35 03/12/17 21:35 03/12/17 21:35 03/12/17 21:35 - Medications Medications: Current Medications Aspirin (Ecotrin) 81 mg PO DAILY [facility] Last Admin: 03/12/17 08:43 Dose: 81 mg Atorvastatin Calcium (Lipitor) 80 mg PO HS [facility] Last Admin: 03/12/17 21:08 Dose: 80 mg Carvedilol (Coreg) 25 mg PO BID@0900,2100 [facility] Last Admin: 03/12/17 20:41 Dose: 25 mg Enoxaparin Sodium (Lovenox) 40 mg SC DAILY [facility] PRN Reason: Protocol Last Admin: 03/12/17 08:42 Dose: 40 mg Lisinopril (Zestril) 20 mg PO DAILY [facility] Last Admin: 03/12/17 08:43 Dose: 20 mg Pantoprazole Sodium (Protonix Ec Tab) 40 mg PO DAILY [facility] Last Admin: 03/12/17 08:43 Dose: 40 mg Ticagrelor (Brilinta) 90 mg PO Q12 [facility] Last Admin: 03/12/17 20:41 Dose: 90 mg - Labs Labs: 03/11/17 05:30 03/11/17 05:30 Attending/Attestation - Attestation I have personally seen and examined this patient.: Yes I have fully participated in the care of the patient.: Yes I have reviewed all pertinent clinical information, including history, physical exam and plan: Yes
--- NOTE | 2017-03-12 17:10 | CP.PCM.PN ---
Subjective - Date & Time of Evaluation Date of Evaluation: 03/12/17 Time of Evaluation: 17:09 - Subjective Subjective: Patient seen in room with present no pain or sob tolerating PT/OT well continue current care team conf tomorrow for d/c planning Objective - Vital Signs/Intake and Output Vital Signs (last 24 hours): Temp Pulse Resp BP Pulse Ox 98.1 F 55 L 20 145/75 98 03/12/17 08:50 03/12/17 16:13 03/12/17 08:50 03/12/17 08:50 03/12/17 16:13 - Medications Medications: Current Medications Aspirin (Ecotrin) 81 mg PO DAILY [facility] Last Admin: 03/12/17 08:43 Dose: 81 mg Atorvastatin Calcium (Lipitor) 80 mg PO HS [facility] Last Admin: 03/11/17 21:24 Dose: 80 mg Carvedilol (Coreg) 25 mg PO BID@0900,2100 [facility] Last Admin: 03/12/17 08:44 Dose: 25 mg Enoxaparin Sodium (Lovenox) 40 mg SC DAILY [facility] PRN Reason: Protocol Last Admin: 03/12/17 08:42 Dose: 40 mg Lisinopril (Zestril) 20 mg PO DAILY [facility] Last Admin: 03/12/17 08:43 Dose: 20 mg Pantoprazole Sodium (Protonix Ec Tab) 40 mg PO DAILY [facility] Last Admin: 03/12/17 08:43 Dose: 40 mg Ticagrelor (Brilinta) 90 mg PO Q12 [facility] Last Admin: 03/12/17 08:43 Dose: 90 mg - Labs Labs: 03/11/17 05:30 03/11/17 05:30
[2017-03-13] MEDS: Enoxaparin 40 mg Syringe SC SCH (08:24)
[2017-03-13] MEDS: Pantoprazole 40 mg EC Tab PO SCH (08:24)
--- NOTE | 2017-03-13 08:34 | CP.PCM.PN ---
<DarellJoseph - Last Filed: 03/13/17 09:06> Subjective - Date & Time of Evaluation Date of Evaluation: 03/13/17 Time of Evaluation: 07:20 - Subjective Subjective: 87 y/o M seen at bedside this morning in not acute distress. Patient denies CP, SOB, palpitations, headache. Still c/o of mild R/thigh and groin pain improving since Yesterday. Denies LE paresthesias, urinary incontinence or retention. Denies diarrhea of feces incontinence. Objective - Vital Signs/Intake and Output Vital Signs (last 24 hours): Temp Pulse Resp BP Pulse Ox 98.6 F 56 L 20 140/70 97 03/12/17 20:40 03/12/17 21:35 03/12/17 21:35 03/12/17 21:35 03/12/17 21:35 - Medications Medications: Current Medications Aspirin (Ecotrin) 81 mg PO DAILY [facility] Last Admin: 03/12/17 08:43 Dose: 81 mg Atorvastatin Calcium (Lipitor) 80 mg PO HS [facility] Last Admin: 03/12/17 21:08 Dose: 80 mg Carvedilol (Coreg) 25 mg PO BID@0900,2100 [facility] Last Admin: 03/12/17 20:41 Dose: 25 mg Enoxaparin Sodium (Lovenox) 40 mg SC DAILY [facility] PRN Reason: Protocol Last Admin: 03/12/17 08:42 Dose: 40 mg Lisinopril (Zestril) 20 mg PO DAILY [facility] Last Admin: 03/12/17 08:43 Dose: 20 mg Pantoprazole Sodium (Protonix Ec Tab) 40 mg PO DAILY [facility] Last Admin: 03/12/17 08:43 Dose: 40 mg Ticagrelor (Brilinta) 90 mg PO Q12 [facility] Last Admin: 03/12/17 20:41 Dose: 90 mg - Labs Labs: 03/11/17 05:30 03/11/17 05:30 - Constitutional Appears: Non-toxic, No Acute Distress - Eye Exam Eye Exam: EOMI, PERRL - ENT Exam ENT Exam: Mucous Membranes Moist - Respiratory Exam Respiratory Exam: Clear to Ausculation Bilateral, NORMAL BREATHING PATTERN. absent: Rales, Wheezes - Cardiovascular Exam Cardiovascular Exam: REGULAR RHYTHM, +S1, +S2. absent: Gallop - GI/Abdominal Exam GI & Abdominal Exam: Soft, Normal Bowel Sounds. absent: Distended, Tenderness - Extremities Exam Extremities Exam: Normal Capillary Refill. absent: Calf Tenderness Additional comments: Wheelchair. Able to transfer by himself. Walks with walker - Neurological Exam Neurological Exam: Alert, Awake, Oriented x3 - Psychiatric Exam Psychiatric exam: Normal Affect, Normal Mood - Skin Skin Exam: Normal Color, Warm Assessment and Plan - Assessment and Plan (Free Text) Assessment: 87 y/o M s/p Anterior STEMI, s/p NATHAN to prox LAD being admitted for rehabilitation. Deconditioning, Unsteady gait, Cardiac rehab S/P [place] -Acute rehab -PT/OT evaluation and treatment -Physiatry consulted. Will f/u recs. Dispo plan to be discussed Today Anterior STEMI s/p drug eluting stent placement to prox LAD -stable -C/W current plan and meds -heart healthy diet -Cardiology consult appreciated HTN -chronic, controlled -C/W Lisinopril 20 mg daily -Doing well with current plan DVT prophylaxis -lovenox 40 mg SC <Jluis Jeter - Last Filed: 03/15/17 06:51> Objective - Vital Signs/Intake and Output Vital Signs (last 24 hours): Temp Pulse Resp BP Pulse Ox 98.2 F 70 20 160/77 H 97 03/14/17 20:00 03/14/17 20:10 03/14/17 20:00 03/14/17 20:10 03/14/17 20:00 - Medications Medications: Current Medications Aspirin (Ecotrin) 81 mg PO DAILY [facility] Last Admin: 03/14/17 08:51 Dose: 81 mg Atorvastatin Calcium (Lipitor) 80 mg PO HS [facility] Last Admin: 03/14/17 21:27 Dose: 80 mg Carvedilol (Coreg) 25 mg PO BID@0900,2100 [facility] Last Admin: 03/14/17 20:10 Dose: 25 mg Enoxaparin Sodium (Lovenox) 40 mg SC DAILY [facility] PRN Reason: Protocol Last Admin: 03/14/17 08:51 Dose: 40 mg Lisinopril (Zestril) 20 mg PO DAILY [facility] Last Admin: 03/14/17 08:51 Dose: 20 mg Pantoprazole Sodium (Protonix Ec Tab) 40 mg PO DAILY [facility] Last Admin: 03/14/17 08:51 Dose: 40 mg Ticagrelor (Brilinta) 90 mg PO Q12 [facility] Last Admin: 03/14/17 20:10 Dose: 90 mg - Labs Labs: 03/14/17 05:10 03/14/17 05:10 Attending/Attestation - Attestation I have personally seen and examined this patient.: Yes I have fully participated in the care of the patient.: Yes I have reviewed all pertinent clinical information, including history, physical exam and plan: Yes
--- NOTE | 2017-03-13 13:30 | PSY.TMCNF ---
Nursing - Vital Signs Vital Signs (Last 8 hours): Vital Signs 03/13/17 03/13/17 08:23 09:10 Temperature 98.9 F Pulse Rate 72 63 Respiratory 22 Rate Blood Pressure 150/80 151/77 H O2 Sat by Pulse 97 Oximetry Pain: 0 - Medications/Other Issues Comment: Pt at moderate nutritional risk. goals: 1: Consume >75% of meals. 2: Maintain weight within 2-3 lbs. of current body weight. Follow-up due on 2016 - Bladder Management Bladder Pattern: Normal Voiding Method: Toilet, Urinal - Bowel Management Bowel Pattern: Normal - Goals/Time Frame Comments: Pt was seen following OT session. Pt agreeable to visit and self propelled in wheelchair to recreation room. Pt was able to identify his leisure interests such as watching television, helping with at home, and used to enjoy reading. Pt reported that his vision limits how much he can read. Pt also reported that he has not gone out into the community for over a year after a fall at home. Pt reported that he has fallen multiple times at home in the past. Pt and pt's are both currently patient's on the unit and pt is supportive with and have supportive family members. Pt's mood was stable- positive and engaged in discussion throughout visit. Pt self propelled his wheelchair back to 's room to socialize with . Physical Therapy - Bed Mobility Bed Mobility: Supervision, Verbal Cues - Transfers Wheelchair to Mat: Supervision, Verbal Cues Sit to Stand: Supervision, Verbal Cues Comment: RW - Ambulation Level of Assistance: Supervision, Verbal Cues Distance (ft.): 60 Assistive Devices: Rolling Walker Orthoses: n/a Comment: -x 2 trials. -level surface, RW, FWB BLE, CS for safety. - demonstrates continued impaired postural control with forward flexion, pushing of walker, RLE then LLE with reduced fluidity. -limited B hip flexion during swing with RLE externally rotated during initial contact and narrow base of support; impaired R ankle control noted. -SOB with gait requiring rest breaks in standing and prolonged rest breaks in sitting - Stair Negotiation Comment: when PT inquired about steps, patient stated "I haven't done them in a year". -PT states that when he left the house to go to ED to visit his he was taken out in a stretcher via ambulance; the EMS crew who brought his to the hospital for stroke like symptoms called a second crew to bring the patient to assess the patient so he did not have to negotiate steps. - initiated pre-stair training activities - Standing Balance Static Stand: Supervision Dynamic Stand: Contact Guard Assist Comment: RW - Pain Pain (assessed during therapy session): 0 Comment: denies pain - Insight/Carryover Insight/Carryover: Fair - Patient/Family Education Comment: role of OT and rehab, recovery process, safety and fall prevention. - Assessment/Plan Assessment: Pt requires several rest periods throughout session secondary to decreased activity tolerance, extended rest periods after standing activities. Pt requires continued OT services in order to maximize safety and independence with ADLs and functional transfers - Goals Timeframe: 2 weeks Goals: ADLs and ADL transfers at MOD I. Pt will safely perform simple meal prep with mod I. Pt will safely perform light household tasks and laundry with min assist - Provider License Number: [id number] Occupational Therapy - Arousal/Attention/Orientation Patient Orientation: Person, Place, Time, Appropriate to Age, Appropriate to Situation - ADL/IADL Self Feeding: Independent Grooming: Set-up Help Bathing-Upper Extremity: Set-up Help Bathing-Lower Extremity: Minimal Assistance Dressing-Upper Extremity: Set-up Help Dressing-Lower Extremity: Minimal Assistance Homemaking: Maximum Assistance - Sitting Balance Static Sitting: Supervision Dynamic Sitting: Contact Guard Assist - Transfers Wheelchair to Bed Transfers: Verbal Cues, Set-up Help, Contact Guard Toilet Transfers: Supervision, Verbal Cues, Contact Guard Comment: Pt refuses to shower, stating he only spongebaths - Wheelchair Management Level of Assistance: Supervision Distance (ft.): 150 - Upper Extremity Status Right Upper Extremity Comment: ROM WFL, MMT 4-/5 Left Upper Extremity Comment: ROM WFL, MMT 4-/5 - Pain Pain (assessed during therapy session): 0 Comment: denies pain - Insight/Carryover Insight/Carryover: Fair - Patient/Family Education Comment: role of OT and rehab, recovery process, safety and fall prevention. - Assessment/Plan Assessment: Pt requires several rest periods throughout session secondary to decreased activity tolerance, extended rest periods after standing activities. Pt requires continued OT services in order to maximize safety and independence with ADLs and functional transfers - Goals Timeframe: 2 weeks Goals: ADLs and ADL transfers at MOD I. Pt will safely perform simple meal prep with mod I. Pt will safely perform light household tasks and laundry with min assist - Provider Therapist: Anne-Marie Montgomery License Number: [id number] Speech Therapy - Plan Assessment: Pt requires several rest periods throughout session secondary to decreased activity tolerance, extended rest periods after standing activities. Pt requires continued OT services in order to maximize safety and independence with ADLs and functional transfers Recreational Therapy - Participation Participation: Participates in Individual and/or Group Sessions - Attendance Attendance: 3-5 times per week - Activities Leisure Activities: Socializing - Socialization Level of Socialization: Initiates/interacts freely with care givers and peer - Diversional Time Diversional Time: television, reading the newspaper, socializing with peers and - Assessment Assessment/Plan: Pt requires several rest periods throughout session secondary to decreased activity tolerance, extended rest periods after standing activities. Pt requires continued OT services in order to maximize safety and independence with ADLs and functional transfers - Provider Therapist: Laura Andres, [employer] #[id number] Nutrition - Current Diet Current Diet/ Supplement/ Feedings: Heart healthy - Appetite Percent Meal Consumed: 75-100% - Assessment/Goals/Time Frame Assessment/Goals/Time Frame: Pt at moderate nutritional risk. goals: 1: Consume >75% of meals. 2: Maintain weight within 2-3 lbs. of current body weight. Follow-up due on 03/14/2017 - Provider Provider: Tereza Schmitt RD Rehabilitation Plan - Discharge Plan Estimated Date of Discharge: 03/17/17 Discharge to: Home
--- NOTE | 2017-03-13 13:51 | CP.PCM.PN ---
Subjective - Date & Time of Evaluation Date of Evaluation: 03/13/17 Time of Evaluation: 13:50 - Subjective Subjective: Patient seen in room present his history is a little off regarding prior function denies pain continue current care set for d/c 03/17/17 Objective - Vital Signs/Intake and Output Vital Signs (last 24 hours): Temp Pulse Resp BP Pulse Ox 98.9 F 63 22 151/77 H 97 03/13/17 09:10 03/13/17 09:10 03/13/17 09:10 03/13/17 09:10 03/13/17 09:10 - Medications Medications: Current Medications Aspirin (Ecotrin) 81 mg PO DAILY [facility] Last Admin: 03/13/17 09:34 Dose: 81 mg Atorvastatin Calcium (Lipitor) 80 mg PO HS [facility] Last Admin: 03/12/17 21:08 Dose: 80 mg Carvedilol (Coreg) 25 mg PO BID@0900,2100 [facility] Last Admin: 03/13/17 08:23 Dose: 25 mg Enoxaparin Sodium (Lovenox) 40 mg SC DAILY [facility] PRN Reason: Protocol Last Admin: 03/13/17 08:24 Dose: 40 mg Lisinopril (Zestril) 20 mg PO DAILY [facility] Last Admin: 03/13/17 08:23 Dose: 20 mg Pantoprazole Sodium (Protonix Ec Tab) 40 mg PO DAILY [facility] Last Admin: 03/13/17 08:24 Dose: 40 mg Ticagrelor (Brilinta) 90 mg PO Q12 [facility] Last Admin: 03/13/17 08:22 Dose: 90 mg - Labs Labs: 03/11/17 05:30 03/11/17 05:30
[2017-03-14 06:42] LABS: HEMATOCRIT 37.4 % (35.0-51.0); MEAN CELL VOLUME 93.6 fl (80.0-94.0); MEAN CORPUSCULAR HEMOGLOBIN 31.7 pg (27.0-31.0); MEAN CORPUSCULAR HGB CONC 33.8 g/dL (33.0-37.0); RED CELL DISTRIBUTION WIDTH 13.7 % (11.5-14.5); WHITE BLOOD COUNT 7.8 K/uL (4.8-10.8)
[2017-03-14 06:48] LABS: CALCIUM 8.5 mg/dL (8.4-10.2); POTASSIUM 4.2 MMOL/L (3.6-5.0)
--- NOTE | 2017-03-14 08:33 | CP.PCM.PN ---
<Joseph Lozoya - Last Filed: 03/14/17 08:34> Subjective - Date & Time of Evaluation Date of Evaluation: 03/14/17 Time of Evaluation: 07:20 - Subjective Subjective: 87 y/o seen at bedside in not acute distress, denies SOB, CP, palpitations, diarrhea, dysuria. He states PT is going "well". Patient had a meeting with PT team Yesterday and anticipated DC home is 03/17/17 Objective - Vital Signs/Intake and Output Vital Signs (last 24 hours): Temp Pulse Resp BP Pulse Ox 96.8 F L 64 20 146/72 97 03/13/17 20:04 03/13/17 20:06 03/13/17 20:04 03/13/17 20:06 03/13/17 20:04 - Medications Medications: Current Medications Aspirin (Ecotrin) 81 mg PO DAILY [facility] Last Admin: 03/13/17 09:34 Dose: 81 mg Atorvastatin Calcium (Lipitor) 80 mg PO HS [facility] Last Admin: 03/13/17 21:01 Dose: 80 mg Carvedilol (Coreg) 25 mg PO BID@0900,2100 [facility] Last Admin: 03/13/17 20:06 Dose: 25 mg Enoxaparin Sodium (Lovenox) 40 mg SC DAILY [facility] PRN Reason: Protocol Last Admin: 03/13/17 08:24 Dose: 40 mg Lisinopril (Zestril) 20 mg PO DAILY [facility] Last Admin: 03/13/17 08:23 Dose: 20 mg Pantoprazole Sodium (Protonix Ec Tab) 40 mg PO DAILY [facility] Last Admin: 03/13/17 08:24 Dose: 40 mg Ticagrelor (Brilinta) 90 mg PO Q12 [facility] Last Admin: 03/13/17 20:06 Dose: 90 mg - Labs Labs: 03/14/17 05:10 03/14/17 05:10 - Constitutional Appears: Non-toxic, No Acute Distress - Eye Exam Eye Exam: Normal appearance - ENT Exam ENT Exam: Mucous Membranes Moist - Respiratory Exam Respiratory Exam: Clear to Ausculation Bilateral, NORMAL BREATHING PATTERN. absent: Rales, Wheezes - Cardiovascular Exam Cardiovascular Exam: REGULAR RHYTHM, +S1, +S2. absent: Gallop - GI/Abdominal Exam GI & Abdominal Exam: Soft, Normal Bowel Sounds. absent: Guarding, Tenderness - Extremities Exam Extremities Exam: Normal Capillary Refill. absent: Calf Tenderness, Joint Swelling - Neurological Exam Neurological Exam: Alert, Awake, Oriented x3 - Psychiatric Exam Psychiatric exam: Normal Affect, Normal Mood - Skin Skin Exam: Normal Color, Warm Assessment and Plan - Assessment and Plan (Free Text) Assessment: 87 y/o M s/p Anterior STEMI, s/p NATHAN to prox LAD being admitted for rehabilitation. Deconditioning, Unsteady gait, Cardiac rehab S/P [place] -Acute rehab -PT/OT evaluation and treatment -Physiatry consulted. Will f/u recs. -Anticipated DC for 03/17/17 Anterior STEMI s/p drug eluting stent placement to prox LAD -stable -C/W current plan and meds -heart healthy diet -Cardiology consult appreciated HTN -chronic, controlled -C/W Lisinopril 20 mg daily -Doing well with current plan DVT prophylaxis -lovenox 40 mg SC <Charly Vazquez A - Last Filed: 03/16/17 07:23> Objective - Vital Signs/Intake and Output Vital Signs (last 24 hours): Temp Pulse Resp BP Pulse Ox 97.1 F L 60 20 149/74 98 03/15/17 22:00 03/15/17 22:00 03/15/17 22:00 03/15/17 22:00 03/15/17 22:00 - Medications Medications: Current Medications Aspirin (Ecotrin) 81 mg PO DAILY [facility] Last Admin: 03/15/17 09:18 Dose: 81 mg Atorvastatin Calcium (Lipitor) 80 mg PO HS [facility] Last Admin: 03/15/17 21:37 Dose: 80 mg Carvedilol (Coreg) 25 mg PO BID@0900,2100 [facility] Last Admin: 03/15/17 21:36 Dose: 25 mg Enoxaparin Sodium (Lovenox) 40 mg SC DAILY [facility] PRN Reason: Protocol Last Admin: 03/15/17 09:18 Dose: 40 mg Lisinopril (Zestril) 20 mg PO DAILY [facility] Last Admin: 03/15/17 09:23 Dose: 20 mg Pantoprazole Sodium (Protonix Ec Tab) 40 mg PO DAILY [facility] Last Admin: 03/15/17 09:19 Dose: 40 mg Ticagrelor (Brilinta) 90 mg PO Q12 [facility] Last Admin: 03/15/17 21:35 Dose: 90 mg - Labs Labs: 03/14/17 05:10 03/14/17 05:10 Attending/Attestation - Attestation I have personally seen and examined this patient.: Yes I have fully participated in the care of the patient.: Yes I have reviewed all pertinent clinical information, including history, physical exam and plan: Yes
[2017-03-14] MEDS: Enoxaparin 40 mg Syringe SC SCH (08:51)
[2017-03-14] MEDS: Pantoprazole 40 mg EC Tab PO SCH (08:51)
--- NOTE | 2017-03-14 09:16 | CP.PCM.PN ---
Subjective - Date & Time of Evaluation Date of Evaluation: 03/14/17 Time of Evaluation: 08:50 - Subjective Subjective: Feels well , participating in rehab well HR 68 BPM (On Coreg) BP 146/70 mm Hg/ on standing up 128/66 mm Hg No signs of CHF Labs are stable Have emphasised the need for dual antiplatelet Rx for 1 yr to the pt Appears stable on present Rx D/C is planned for Sat Objective - Vital Signs/Intake and Output Vital Signs (last 24 hours): Temp Pulse Resp BP Pulse Ox 98.1 F 75 20 160/85 H 98 03/14/17 08:58 03/14/17 08:58 03/14/17 08:58 03/14/17 08:58 03/14/17 08:58 - Medications Medications: Current Medications Aspirin (Ecotrin) 81 mg PO DAILY [facility] Last Admin: 03/14/17 08:51 Dose: 81 mg Atorvastatin Calcium (Lipitor) 80 mg PO HS [facility] Last Admin: 03/13/17 21:01 Dose: 80 mg Carvedilol (Coreg) 25 mg PO BID@0900,2100 [facility] Last Admin: 03/14/17 08:50 Dose: 25 mg Enoxaparin Sodium (Lovenox) 40 mg SC DAILY [facility] PRN Reason: Protocol Last Admin: 03/14/17 08:51 Dose: 40 mg Lisinopril (Zestril) 20 mg PO DAILY [facility] Last Admin: 03/14/17 08:51 Dose: 20 mg Pantoprazole Sodium (Protonix Ec Tab) 40 mg PO DAILY [facility] Last Admin: 03/14/17 08:51 Dose: 40 mg Ticagrelor (Brilinta) 90 mg PO Q12 [facility] Last Admin: 03/14/17 08:50 Dose: 90 mg - Labs Labs: 03/14/17 05:10 03/14/17 05:10
[2017-03-15] MEDS: Enoxaparin 40 mg Syringe SC SCH (09:18)
[2017-03-15] MEDS: Pantoprazole 40 mg EC Tab PO SCH (09:19)
--- NOTE | 2017-03-15 10:22 | CP.PCM.PN ---
<DarellJoseph - Last Filed: 03/15/17 10:23> Subjective - Date & Time of Evaluation Date of Evaluation: 03/15/17 Time of Evaluation: 07:15 - Subjective Subjective: 87 y/o M seen at bedside in good spirits. Denies CP, palpitations, dizziness, abd pain, vomiting, changes in urination or stools. Still c/o of mild SOB during PT sessions, not at rest. Anticipated DC 03/17/17 Objective - Vital Signs/Intake and Output Vital Signs (last 24 hours): Temp Pulse Resp BP Pulse Ox 97.2 F L 72 20 132/62 98 03/15/17 07:49 03/15/17 09:23 03/15/17 07:49 03/15/17 09:23 03/15/17 07:49 - Medications Medications: Current Medications Aspirin (Ecotrin) 81 mg PO DAILY [facility] Last Admin: 03/15/17 09:18 Dose: 81 mg Atorvastatin Calcium (Lipitor) 80 mg PO HS [facility] Last Admin: 03/14/17 21:27 Dose: 80 mg Carvedilol (Coreg) 25 mg PO BID@0900,2100 [facility] Last Admin: 03/15/17 09:18 Dose: 25 mg Enoxaparin Sodium (Lovenox) 40 mg SC DAILY [facility] PRN Reason: Protocol Last Admin: 03/15/17 09:18 Dose: 40 mg Lisinopril (Zestril) 20 mg PO DAILY [facility] Last Admin: 03/15/17 09:23 Dose: 20 mg Pantoprazole Sodium (Protonix Ec Tab) 40 mg PO DAILY [facility] Last Admin: 03/15/17 09:19 Dose: 40 mg Ticagrelor (Brilinta) 90 mg PO Q12 [facility] Last Admin: 03/15/17 09:18 Dose: 90 mg - Labs Labs: 03/14/17 05:10 03/14/17 05:10 - Constitutional Appears: Non-toxic, No Acute Distress - Eye Exam Eye Exam: EOMI, PERRL - ENT Exam ENT Exam: Mucous Membranes Moist - Respiratory Exam Respiratory Exam: Clear to Ausculation Bilateral, NORMAL BREATHING PATTERN. absent: Rales, Wheezes - Cardiovascular Exam Cardiovascular Exam: REGULAR RHYTHM, +S1, +S2. absent: Gallop - GI/Abdominal Exam GI & Abdominal Exam: Soft, Normal Bowel Sounds. absent: Distended, Tenderness - Extremities Exam Extremities Exam: Normal Capillary Refill. absent: Calf Tenderness - Neurological Exam Neurological Exam: Alert, Awake, Oriented x3 - Psychiatric Exam Psychiatric exam: Normal Affect, Normal Mood - Skin Skin Exam: Normal Color, Warm Assessment and Plan - Assessment and Plan (Free Text) Assessment: 87 y/o M s/p Anterior STEMI, s/p NATHAN to prox LAD being admitted for rehabilitation. Deconditioning, Unsteady gait, Cardiac rehab S/P [place] -Acute rehab -PT/OT evaluation and treatment -Physiatry consulted. Will f/u recs. -Anticipated DC for 03/17/17 Anterior STEMI s/p drug eluting stent placement to prox LAD -stable -C/W current plan and meds -heart healthy diet -Cardiology consult appreciated -Will need to continue with dual antiplatelet therapy for 1 year. HTN -chronic, controlled -C/W current plan -Doing well with current plan DVT prophylaxis -lovenox 40 mg SC <Jluis Jeter - Last Filed: 03/16/17 06:47> Objective - Vital Signs/Intake and Output Vital Signs (last 24 hours): Temp Pulse Resp BP Pulse Ox 97.1 F L 60 20 149/74 98 03/15/17 22:00 03/15/17 22:00 03/15/17 22:00 03/15/17 22:00 03/15/17 22:00 - Medications Medications: Current Medications Aspirin (Ecotrin) 81 mg PO DAILY [facility] Last Admin: 03/15/17 09:18 Dose: 81 mg Atorvastatin Calcium (Lipitor) 80 mg PO HS [facility] Last Admin: 03/15/17 21:37 Dose: 80 mg Carvedilol (Coreg) 25 mg PO BID@0900,2100 [facility] Last Admin: 03/15/17 21:36 Dose: 25 mg Enoxaparin Sodium (Lovenox) 40 mg SC DAILY [facility] PRN Reason: Protocol Last Admin: 03/15/17 09:18 Dose: 40 mg Lisinopril (Zestril) 20 mg PO DAILY [facility] Last Admin: 03/15/17 09:23 Dose: 20 mg Pantoprazole Sodium (Protonix Ec Tab) 40 mg PO DAILY [facility] Last Admin: 03/15/17 09:19 Dose: 40 mg Ticagrelor (Brilinta) 90 mg PO Q12 [facility] Last Admin: 03/15/17 21:35 Dose: 90 mg - Labs Labs: 03/14/17 05:10 03/14/17 05:10 Attending/Attestation - Attestation I have personally seen and examined this patient.: Yes I have fully participated in the care of the patient.: Yes I have reviewed all pertinent clinical information, including history, physical exam and plan: Yes
--- NOTE | 2017-03-15 18:10 | CP.PCM.PN ---
Subjective - Date & Time of Evaluation Date of Evaluation: 03/15/17 Time of Evaluation: 18:09 - Subjective Subjective: Patient seen in room doing well good appetite set for d/c home Sunday now given some issues at home continue current acute rehab Objective - Vital Signs/Intake and Output Vital Signs (last 24 hours): Temp Pulse Resp BP Pulse Ox 97.2 F L 72 20 132/62 98 03/15/17 07:49 03/15/17 09:23 03/15/17 07:49 03/15/17 09:23 03/15/17 07:49 - Medications Medications: Current Medications Aspirin (Ecotrin) 81 mg PO DAILY [facility] Last Admin: 03/15/17 09:18 Dose: 81 mg Atorvastatin Calcium (Lipitor) 80 mg PO HS [facility] Last Admin: 03/14/17 21:27 Dose: 80 mg Carvedilol (Coreg) 25 mg PO BID@0900,2100 [facility] Last Admin: 03/15/17 09:18 Dose: 25 mg Enoxaparin Sodium (Lovenox) 40 mg SC DAILY [facility] PRN Reason: Protocol Last Admin: 03/15/17 09:18 Dose: 40 mg Lisinopril (Zestril) 20 mg PO DAILY [facility] Last Admin: 03/15/17 09:23 Dose: 20 mg Pantoprazole Sodium (Protonix Ec Tab) 40 mg PO DAILY [facility] Last Admin: 03/15/17 09:19 Dose: 40 mg Ticagrelor (Brilinta) 90 mg PO Q12 [facility] Last Admin: 03/15/17 09:18 Dose: 90 mg - Labs Labs: 03/14/17 05:10 03/14/17 05:10
[2017-03-16] MEDS: Enoxaparin 40 mg Syringe SC SCH (08:19)
[2017-03-16] MEDS: Pantoprazole 40 mg EC Tab PO SCH (08:19)
--- NOTE | 2017-03-16 09:06 | CP.PCM.PN ---
Subjective - Date & Time of Evaluation Date of Evaluation: 03/16/17 Time of Evaluation: 07:40 - Subjective Subjective: 87 y/o M seen at bedside in good spirits. No acute events overnight. Patient c/ o SOB with moderate exertion. Denies CP, palpitations, fever, vomiting, orthopnea, abd pain. Objective - Vital Signs/Intake and Output Vital Signs (last 24 hours): Temp Pulse Resp BP Pulse Ox 98 F 83 20 150/90 98 03/16/17 08:24 03/16/17 08:24 03/16/17 08:24 03/16/17 08:24 03/16/17 08:24 - Medications Medications: Current Medications Aspirin (Ecotrin) 81 mg PO DAILY [facility] Last Admin: 03/15/17 09:18 Dose: 81 mg Atorvastatin Calcium (Lipitor) 80 mg PO HS [facility] Last Admin: 03/15/17 21:37 Dose: 80 mg Carvedilol (Coreg) 25 mg PO BID@0900,2100 [facility] Last Admin: 03/16/17 08:19 Dose: 25 mg Enoxaparin Sodium (Lovenox) 40 mg SC DAILY [facility] PRN Reason: Protocol Last Admin: 03/16/17 08:19 Dose: 40 mg Lisinopril (Zestril) 20 mg PO DAILY [facility] Last Admin: 03/16/17 08:20 Dose: 20 mg Pantoprazole Sodium (Protonix Ec Tab) 40 mg PO DAILY [facility] Last Admin: 03/16/17 08:19 Dose: 40 mg Ticagrelor (Brilinta) 90 mg PO Q12 [facility] Last Admin: 03/16/17 08:19 Dose: 90 mg - Labs Labs: 03/14/17 05:10 03/14/17 05:10 - Constitutional Appears: Non-toxic, No Acute Distress - Eye Exam Eye Exam: EOMI, PERRL - ENT Exam ENT Exam: Mucous Membranes Moist - Respiratory Exam Respiratory Exam: Clear to Ausculation Bilateral, NORMAL BREATHING PATTERN. absent: Rales, Wheezes - Cardiovascular Exam Cardiovascular Exam: REGULAR RHYTHM, +S1, +S2. absent: Gallop - GI/Abdominal Exam GI & Abdominal Exam: Soft, Normal Bowel Sounds. absent: Distended, Guarding, Tenderness - Extremities Exam Extremities Exam: Normal Capillary Refill. absent: Calf Tenderness - Neurological Exam Neurological Exam: Alert, Awake, Oriented x3 Neuro motor strength exam: Left Upper Extremity: 4, Right Upper Extremity: 4, Left Lower Extremity: 3, Right Lower Extremity: 3 - Psychiatric Exam Psychiatric exam: Normal Affect, Normal Mood - Skin Skin Exam: Normal Color, Warm Assessment and Plan - Assessment and Plan (Free Text) Assessment: 87 y/o M s/p Anterior STEMI, s/p NATHAN to prox LAD being admitted for rehabilitation. Deconditioning, Unsteady gait, Cardiac rehab S/P CO -Acute rehab -PT/OT evaluation and treatment -Physiatry on board -Anticipated DC for 03/18/17 Anterior STEMI s/p drug eluting stent placement to prox LAD -stable -C/W current plan and meds -heart healthy diet -Cardiology consult appreciated -Will need to continue with dual antiplatelet therapy for 1 year. HTN -chronic, controlled -C/W current plan -Doing well with current plan DVT prophylaxis -lovenox 40 mg SC
--- NOTE | 2017-03-16 14:46 | CP.PCM.PN ---
Subjective - Date & Time of Evaluation Date of Evaluation: 03/16/17 Time of Evaluation: 09:00 - Subjective Subjective: no acute complaints at present Objective - Vital Signs/Intake and Output Vital Signs (last 24 hours): Temp Pulse Resp BP Pulse Ox 98 F 83 20 150/90 98 03/16/17 08:24 03/16/17 08:24 03/16/17 08:24 03/16/17 08:24 03/16/17 08:24 - Medications Medications: Current Medications Aspirin (Ecotrin) 81 mg PO DAILY [facility] Last Admin: 03/15/17 09:18 Dose: 81 mg Atorvastatin Calcium (Lipitor) 80 mg PO HS [facility] Last Admin: 03/15/17 21:37 Dose: 80 mg Carvedilol (Coreg) 25 mg PO BID@0900,2100 [facility] Last Admin: 03/16/17 08:19 Dose: 25 mg Enoxaparin Sodium (Lovenox) 30 mg SC DAILY [facility] PRN Reason: Protocol Lisinopril (Zestril) 20 mg PO DAILY [facility] Last Admin: 03/16/17 08:20 Dose: 20 mg Pantoprazole Sodium (Protonix Ec Tab) 40 mg PO DAILY [facility] Last Admin: 03/16/17 08:19 Dose: 40 mg Ticagrelor (Brilinta) 90 mg PO Q12 [facility] Last Admin: 03/16/17 08:19 Dose: 90 mg - Labs Labs: 03/14/17 05:10 03/14/17 05:10 - Head Exam Head Exam: ATRAUMATIC, NORMAL INSPECTION, NORMOCEPHALIC - Eye Exam Eye Exam: EOMI, Normal appearance, PERRL Pupil Exam: NORMAL ACCOMODATION - ENT Exam ENT Exam: Mucous Membranes Moist, Normal Exam - Neck Exam Neck Exam: Normal Inspection - Respiratory Exam Respiratory Exam: NORMAL BREATHING PATTERN - Cardiovascular Exam Cardiovascular Exam: REGULAR RHYTHM - GI/Abdominal Exam GI & Abdominal Exam: Normal Bowel Sounds - Rectal Exam Rectal Exam: NORMAL INSPECTION - Exam External exam: NORMAL EXTERNAL EXAM - Extremities Exam Extremities Exam: Normal Capillary Refill, Normal Inspection - Back Exam Back Exam: NORMAL INSPECTION - Neurological Exam Neurological Exam: Alert, Awake Neuro motor strength exam: Left Upper Extremity: 3, Right Upper Extremity: 3, Left Lower Extremity: 3, Right Lower Extremity: 3 - Psychiatric Exam Psychiatric exam: Normal Affect, Normal Mood - Skin Skin Exam: Dry, Intact Assessment and Plan - Assessment and Plan (Free Text) Assessment: STEMI, TIA< HTN< obesity, cataract, CHF plan for pt, ot, rec therapy covering for DR. Sandhu
[2017-03-17 07:56] LABS: HEMATOCRIT 38.6 % (35.0-51.0); MEAN CELL VOLUME 92.9 fl (80.0-94.0); MEAN CORPUSCULAR HEMOGLOBIN 31.3 pg (27.0-31.0); MEAN CORPUSCULAR HGB CONC 33.7 g/dL (33.0-37.0); RED CELL DISTRIBUTION WIDTH 13.6 % (11.5-14.5); WHITE BLOOD COUNT 8.3 K/uL (4.8-10.8)
[2017-03-17 08:09] LABS: CALCIUM 8.9 mg/dL (8.4-10.2); POTASSIUM 4.3 MMOL/L (3.6-5.0)
[2017-03-17] MEDS: Pantoprazole 40 mg EC Tab PO SCH (08:28)
[2017-03-17] MEDS: Enoxaparin 30 mg Syringe SC SCH (10:00)
--- NOTE | 2017-03-17 22:31 | PN ---
DATE: PHYSIATRY PROGRESS NOTE SUBJECTIVE: The patient is an 87-year-old male, admitted for acute inpatient rehab program. No acute complaints noted at present. PHYSICAL EXAMINATION: VITAL SIGNS: Stable. NECK: Supple. CHEST: Symmetrical. HEART: Sounds S1 and S2. ABDOMEN: Area is benign. EXTREMITIES: No clubbing, cyanosis, or edema. IMPRESSION: ST-segment elevation myocardial infarction, transient ischemic attack, hypertension, obesity, cataracts, congestive heart failure, coronary artery disease. PLAN: For physical therapy, occupational therapy, recreational therapy for range of motion strengthening, transverse and gait training. Tito Jhaveri MD
[2017-03-18 03:02] VITALS: RESP 20
[2017-03-18] MEDS: Enoxaparin 30 mg Syringe SC SCH (09:28)
[2017-03-18] MEDS: Pantoprazole 40 mg EC Tab PO SCH (09:28)
--- NOTE | 2017-03-18 09:49 | CP.PCM.DIS ---
Provider - Provider Date of Admission: 03/06/17 18:28 Attending physician: Charly Vazquez MD Primary care physician: Charly Vazquez MD Hospital Course - Lab Results Lab Results: Most Recent Lab Values WBC 8.3 K/uL (4.8-10.8) 03/17/17 07:00 RBC 4.16 Mil/uL (4.40-5.90) L 03/17/17 07:00 Hgb 13.0 g/dL (12.0-18.0) 03/17/17 07:00 Hct 38.6 % (35.0-51.0) 03/17/17 07:00 MCV 92.9 fl (80.0-94.0) 03/17/17 07:00 MCH 31.3 pg (27.0-31.0) H 03/17/17 07:00 MCHC 33.7 g/dL (33.0-37.0) 03/17/17 07:00 RDW 13.6 % (11.5-14.5) 03/17/17 07:00 Plt Count 246 K/uL (130-400) 03/17/17 07:00 Sodium 140 mmol/l (132-148) 03/17/17 07:00 Potassium 4.3 MMOL/L (3.6-5.0) 03/17/17 07:00 Chloride 107 mmol/L (98-107) 03/17/17 07:00 Carbon Dioxide 24 mmol/L (22-30) 03/17/17 07:00 Anion Gap 13 (10-20) 03/17/17 07:00 BUN 26 mg/dl (9-20) H 03/17/17 07:00 Creatinine 1.5 mg/dl (0.8-1.5) 03/17/17 07:00 Est GFR ( Amer) 53 03/17/17 07:00 Est GFR (Non-Af Amer) 44 03/17/17 07:00 Random Glucose 87 mg/dL (75-110) 03/17/17 07:00 Calcium 8.9 mg/dL (8.4-10.2) 03/17/17 07:00 Troponin I 0.3100 ng/mL (0.00-0.120) H* 03/08/17 05:10 C. difficile Ag & Toxin Negative (NEGATIVE) 03/06/17 Unknown Discharge Exam - Head Exam Head Exam: ATRAUMATIC, NORMAL INSPECTION, NORMOCEPHALIC Discharge Plan - Follow Up Plan Condition: GOOD Disposition: HOME/ ROUTINE Instructions: Lisinopril (By mouth), Aspirin (By mouth), Atorvastatin (By mouth ), Carvedilol (By mouth), Pantoprazole (By mouth), Ticagrelor (By mouth), Myocardial Infarction (DC), Heart Healthy Diet (DC) Referrals: Charly Vazquez MD [Primary Care Provider] -
[2017-03-18 10:12] VITALS: BP 135/56; PULSE 60; TEMP 98; O2SAT 96
== END 2017-03-18 13:25 | disposition home health service (06) | DRG 281 ==
PROVIDERS: ADMIT Family Medicine; ATTEND Family Medicine
PROC: F07Z9FZ Gait Training/Functional Ambulation Treatment using Assistive, Adaptive, Supportive or Protective Equipment (ICD-10-PCS; principal; 2017-03-06)
PROC: 0HBRXZZ Excision of Toe Nail, External Approach (ICD-10-PCS; 2017-03-07)
PROC: F08Z4FZ Home Management Treatment using Assistive, Adaptive, Supportive or Protective Equipment (ICD-10-PCS; 2017-03-07)
PROC: F07M6FZ Therapeutic Exercise Treatment of Musculoskeletal System - Whole Body using Assistive, Adaptive, Supportive or Protective Equipment (ICD-10-PCS; 2017-03-07)
DX: I21.09 ST elevation (STEMI) myocardial infarction involving other coronary artery of anterior wall (principal); I16.1 Hypertensive emergency; I11.0 Hypertensive heart disease with heart failure; I95.9 Hypotension, unspecified; I44.7 Left bundle-branch block, unspecified; I50.9 Heart failure, unspecified; E66.9 Obesity, unspecified; Z68.30 Body mass index [BMI] 30.0-30.9, adult; H26.9 Unspecified cataract; H35.30 Unspecified macular degeneration; I25.10 Atherosclerotic heart disease of native coronary artery without angina pectoris; Z79.82 Long term (current) use of aspirin; Z79.899 Other long term (current) drug therapy; Z95.5 Presence of coronary angioplasty implant and graft; R10.31 Right lower quadrant pain; R19.7 Diarrhea, unspecified; R26.81 Unsteadiness on feet; L60.2 Onychogryphosis

== ENCOUNTER 2017-09-11 11:35 | Inpatient (IN) | payer MEDICARE, BC ==
[2017-09-11 11:36] VITALS: BMI 30.4
[2017-09-11 12:37] LABS: BASO # 0.1 K/uL (0.0-0.2); BASO % 0.7 % (0.0-2.0); EOS % 0.3 % (0.0-4.0); HEMOGLOBIN 9.9 g/dL (12.0-18.0); LYMPH # 1.8 K/uL (1.0-4.3); LYMPH % 14.4 % (20.0-40.0); MEAN CELL VOLUME 93.9 fl (80.0-94.0); MEAN CORPUSCULAR HEMOGLOBIN 31.2 pg (27.0-31.0); MEAN CORPUSCULAR HGB CONC 33.2 g/dL (33.0-37.0); MEAN PLATELET VOLUME 9.2 fl (7.2-11.7); MONO # 0.6 K/uL (0.0-0.8); MONO % 4.4 % (0.0-10.0); NEUT # 10.3 K/uL (1.8-7.0); NEUT % 80.2 % (50.0-75.0); RBC 3.17 Mil/uL (4.40-5.90); RED CELL DISTRIBUTION WIDTH 14.2 % (11.5-14.5); WHITE BLOOD COUNT 12.8 K/uL (4.8-10.8)
--- NOTE | 2017-09-11 12:45 | ED PDOC ---
HPI: Abdomen Time Seen by Provider: 09/11/17 11:48 Chief Complaint (Nursing): Abdominal Pain Chief Complaint (Provider): abdominal pain History Per: Patient History/Exam Limitations: no limitations Onset/Duration Of Symptoms: Days (x1) Current Symptoms Are (Timing): Still Present Location Of Pain/Discomfort: Other (across lower abdomen) Quality Of Discomfort: "Pain" Associated Symptoms: Nausea, Vomiting. denies: Fever, Chills, Diarrhea Exacerbating Factors: Movement Additional Complaint(s): Andrew Belcher is an 87 year old male, with a past medical history of HTN, CAD and x2 cardiac stents, who presents to the emergency department complaining of abdominal pain associated with nausea, vomit and shortness of breath onset since last night. Patient states abdominal pain worsens with movement and goes across the lower region. Patient had some soup last night, went to bed but felt nauseous and vomited multiple times. Patient states he wasn't able to sleep well and this morning he had no appetite. Today, he went to the bathroom and after getting up he felt very weak which prompted ED visit. He denies any fever , chills, diarrhea or chest pain. No further medial complaints. PMD: Charly Vazquez Dry Cans Operator: Dr. Forman Past Medical History Reviewed: Historical Data, Nursing Documentation, Vital Signs Vital Signs: Last Vital Signs Temp 97.3 F L 09/13/17 12:00 Pulse 58 L 09/13/17 12:00 Resp 18 09/13/17 12:00 BP 128/62 09/13/17 12:00 Pulse Ox 99 09/13/17 13:07 - Medical History PMH: CAD, CHF, HTN, TIA Denies: HIV, Chronic Kidney Disease - Surgical History Surgical History: Coronary Stent (x2) - Family History Family History: States: No Known Family Hx - Social History Current smoker - smoking cessation education provided: No Alcohol: None Drugs: Denies - Home Medications Home Medications: Ambulatory Orders Medication Instructions Recorded Aspirin [Ecotrin] 81 mg PO DAILY 03/06/17 Atorvastatin [Lipitor] 80 mg PO HS 03/06/17 Carvedilol [Coreg] 25 mg PO Q12 03/06/17 Ticagrelor [Brilinta] 90 mg PO Q12 03/06/17 Lisinopril [Zestril] 20 mg PO DAILY tab 03/18/17 Vit A/Vit C/Vit E/Zinc/Copper 1 cap PO BID 09/11/17 [Icaps Areds Softgel] - Allergies Allergies/Adverse Reactions: Allergies Allergy/AdvReac Type Severity Reaction Status Date / Time buspirone [From BuSpar] Allergy RASH Verified 03/06/17 15:27 Penicillins Allergy URTICARIA Verified 03/06/17 15:27 Review of Systems ROS Statement: Except As Marked, All Systems Reviewed And Found Negative Constitutional: Negative for: Fever, Chills Cardiovascular: Negative for: Chest Pain Respiratory: Positive for: Shortness of Breath Gastrointestinal: Positive for: Nausea, Vomiting, Abdominal Pain. Negative for : Diarrhea, Melena, Hematochezia, Hematemesis Physical Exam - Reviewed Nursing Documentation Reviewed: Yes Vital Signs Reviewed: Yes - Physical Exam Appears: Positive for: Non-toxic, No Acute Distress Head Exam: Positive for: ATRAUMATIC, NORMOCEPHALIC Skin: Positive for: Warm, Dry, Pallor Eye Exam: Positive for: Normal appearance, EOMI, PERRL ENT: Positive for: Other (mucous membrane dry) Neck: Positive for: Painless ROM, Supple Cardiovascular/Chest: Positive for: Regular Rate, Rhythm. Negative for: Murmur Respiratory: Positive for: Normal Breath Sounds. Negative for: Respiratory Distress Gastrointestinal/Abdominal: Positive for: Normal Exam, Soft. Negative for: Tenderness, Guarding, Rebound Back: Positive for: Normal Inspection. Negative for: L CVA Tenderness, R CVA Tenderness, Vertebral Tenderness Extremity: Positive for: Normal ROM (upper and lower extremities). Negative for : Deformity, Swelling Neurologic/Psych: Positive for: Alert, Oriented. Negative for: Motor/Sensory Deficits - Laboratory Results Result Diagrams: 09/13/17 12:36 09/13/17 04:50 - ECG ECG: Positive for: Interpreted By Me, Viewed By Me ECG Rhythm: Positive for: Normal ST Segment, Sinus Rhythm, 1st Degree Heart Block, Left Bundle Branch Block Rate: 79 O2 Sat by Pulse Oximetry: 99 (RA) Pulse Ox Interpretation: Normal Medical Decision Making Medical Decision Making: Initial Impression: Vomiting and abdominal pain w/ dyspnea. Differential includes small bowel obstruction, gastritis, pancreatitis. For dyspnea considered ACS & CHF. Initial Plan: --Abdomen & Pelvis IV contrast only [CT] --EKG --CMP --Lipase --Troponin I --Urine dipstick --CBC w/ differential --Chest one view [RAD] --Reevaluation 13:06 CXR FINDINGS: LUNGS: Clear. PLEURA: No pneumothorax or pleural fluid seen. CARDIOVASCULAR: Atherosclerotic aortic calcifications. Cardiomediastinal silhouette stably enlarged. OSSEOUS STRUCTURES: Unchanged. VISUALIZED UPPER ABDOMEN: Normal. OTHER FINDINGS: None. IMPRESSION: No active disease. Abd/Pelvis CAT Scan Results... FINDINGS: LOWER THORAX: Unremarkable. LIVER: 1.6 x 0.8 cm hypodensity in the caudate lobe. No ductal dilatation. GALLBLADDER AND BILE DUCTS: Unremarkable. PANCREAS: Unremarkable. No gross lesion or ductal dilatation. SPLEEN: Unremarkable. ADRENALS: Unremarkable. No mass. KIDNEYS AND URETERS: Bilateral renal cysts. No hydronephrosis. No solid mass. VASCULATURE: Varying degrees of SMA stenosis. No aortic aneurysm. BOWEL: Moderate hiatal hernia. Colonic diverticulosis. No obstruction. No gross mural thickening. APPENDIX: Normal appendix. PERITONEUM: Hazy change within the mesentery. No free fluid. No free air. LYMPH NODES: Unremarkable. No enlarged lymph nodes. BLADDER: Unremarkable. REPRODUCTIVE: Prostatomegaly. BONES: Severe right hip arthritic change. No acute fracture. OTHER FINDINGS: None. IMPRESSION: Nonspecific hazy change within the mesentery. This is a nonspecific finding which can be seen with mesenteric edema, lymphedema, hemorrhage and infiltration with inflammatory or neoplastic cells. Varying degrees of SMA stenosis. Colonic diverticulosis without evidence for acute diverticulitis. Additional findings as above. Scribe Attestation: Documented by Madi Coronado, acting as a scribe for Estevan Ibarra MD Provider Scribe Attestation: All medical record entries made by the Scribe were at my direction and personally dictated by me. I have reviewed the chart and agree that the record accurately reflects my personal performance of the history, physical exam, medical decision making, and the department course for this patient. I have also personally directed, reviewed, and agree with the discharge instructions and disposition. Disposition - Clinical Impression Clinical Impression: Dyspnea, Vomiting, Anemia - Patient ED Disposition Is Patient to be Admitted: Yes Discussed With DrSandoval: Charly Vazquez (notified FP resident) Doctor Will See Patient In The: Hospital Counseled Patient/Family Regarding: Studies Performed, Diagnosis - Disposition Disposition Time: 15:00 Condition: FAIR - Pt Status Changed To: Hospital Disposition Of: Observation - POA Present On Arrival: None
[2017-09-11 12:46] LABS: ALB/GLOB RATIO 1.2 (1.0-2.1); ALBUMIN 3.5 g/dL (3.5-5.0); ALT/SGPT 25 U/L (21-72); AST/SGOT 25 U/L (17-59); BLOOD UREA NITROGEN 71 mg/dl (9-20); CALCIUM 9.2 mg/dL (8.4-10.2); GFR AFRICAN-AMERICAN > 60; GFR NON-AFRICAN AMERICAN > 60; LIPASE 69 U/L (23-300)
--- NOTE | 2017-09-11 13:07 | RAD ---
PROCEDURE: CHEST RADIOGRAPH, 1 VIEW HISTORY: dyspnea COMPARISON: Chest radiograph dated 03/24/2009. FINDINGS: LUNGS: Clear. PLEURA: No pneumothorax or pleural fluid seen. CARDIOVASCULAR: Atherosclerotic aortic calcifications. Cardiomediastinal silhouette stably enlarged. OSSEOUS STRUCTURES: Unchanged. VISUALIZED UPPER ABDOMEN: Normal. OTHER FINDINGS: None. IMPRESSION: No active disease.
[2017-09-11] MEDS ORDERED: Iohexol 300 100 ML IJ ONE (14:27)
[2017-09-11] MEDS ORDERED: Sodium Chloride 0.9% 100 ML ONE (14:34)
[2017-09-11] MEDS ORDERED: Iodixanol 320 MG/ML 100 ML BOTTLE IV ONE (14:34)
--- NOTE | 2017-09-11 15:10 | CT ---
PROCEDURE: CT Abdomen and Pelvis with contrast HISTORY: abdominal pain vomiting COMPARISON: None. TECHNIQUE: Contrast dose: 95 mL Omnipaque 300 Radiation dose: Total exam DLP = 989 mGy-cm. This CT exam was performed using one or more of the following dose reduction techniques: Automated exposure control, adjustment of the mA and/or kV according to patient size, and/or use of iterative reconstruction technique. FINDINGS: LOWER THORAX: Unremarkable. LIVER: 1.6 x 0.8 cm hypodensity in the caudate lobe. No ductal dilatation. GALLBLADDER AND BILE DUCTS: Unremarkable. PANCREAS: Unremarkable. No gross lesion or ductal dilatation. SPLEEN: Unremarkable. ADRENALS: Unremarkable. No mass. KIDNEYS AND URETERS: Bilateral renal cysts. No hydronephrosis. No solid mass. VASCULATURE: Varying degrees of SMA stenosis. No aortic aneurysm. BOWEL: Moderate hiatal hernia. Colonic diverticulosis. No obstruction. No gross mural thickening. APPENDIX: Normal appendix. PERITONEUM: Hazy change within the mesentery. No free fluid. No free air. LYMPH NODES: Unremarkable. No enlarged lymph nodes. BLADDER: Unremarkable. REPRODUCTIVE: Prostatomegaly. BONES: Severe right hip arthritic change. No acute fracture. OTHER FINDINGS: None. IMPRESSION: Nonspecific hazy change within the mesentery. This is a nonspecific finding which can be seen with mesenteric edema, lymphedema, hemorrhage and infiltration with inflammatory or neoplastic cells. Varying degrees of SMA stenosis. Colonic diverticulosis without evidence for acute diverticulitis. Additional findings as above.
[2017-09-11] MEDS ORDERED: Sodium Chloride 0.9% 500 ML IV STA (15:15)
--- NOTE | 2017-09-11 15:59 | CP.PCM.CON ---
History of Present Illness - History of Present Illness History of Present Illness: 87 year old male, with a past medical history of HTN, CAD and cardiac stent in LAD 02/2017, who presents to the emergency department complaining of abdominal pain associated with nausea, vomit and shortness of breath onset since last night. Patient states abdominal pain worsens with movement and goes across the lower region. Denies chest pain /DEVINE/SOB/palpitations Hgb: 7.3 !!! Troponin: Neg x 3 PMH: CAD, CHF, HTN, TIA 03/16 Stent LAD EKG: CLBBB Echo: severe Aortic Stenosis Past Patient History - Past Medical History & Family History Past Medical History?: Yes - Past Social History Alcohol: None Drugs: Denies - CARDIAC Hx Congestive Heart Failure: Yes Hx Hypertension: Yes - NEUROLOGICAL Hx Transient Ischemic Attacks (TIA): Yes - RENAL Hx Chronic Kidney Disease: No - HEMATOLOGICAL/ONCOLOGICAL Hx Human Immunodeficiency Virus (HIV): No - MUSCULOSKELETAL/RHEUMATOLOGICAL Hx Falls: No Hx Unsteady Gait: Yes - PSYCHIATRIC Hx Substance Use: No - SURGICAL HISTORY Hx Coronary Stent: Yes (x2) - ANESTHESIA Hx Anesthesia: Yes Hx Anesthesia Reactions: No Meds Allergies/Adverse Reactions: Allergies Allergy/AdvReac Type Severity Reaction Status Date / Time buspirone [From BuSpar] Allergy RASH Verified 03/06/17 15:27 Penicillins Allergy URTICARIA Verified 03/06/17 15:27 - Medications Medications: Current Medications Sodium Chloride (Sodium Chloride 0.9%) 500 mls @ 500 mls/hr IV .Q1H STA Stop: 09/11/17 16:14 Physical Exam - Respiratory Exam Respiratory Exam: NORMAL BREATHING PATTERN - Cardiovascular Exam Cardiovascular Exam: REGULAR RHYTHM Results - Vital Signs Recent Vital Signs: Last Vital Signs Temp 98.8 F 09/11/17 11:37 Pulse 72 09/11/17 11:37 Resp 16 09/11/17 11:37 BP 144/64 09/11/17 11:37 Pulse Ox 99 09/11/17 15:41 - Labs Result Diagrams: 09/12/17 05:30 09/12/17 05:30 Labs: Laboratory Results - last 24 hr 09/11/17 09/11/17 12:27 12:27 WBC 12.8 H D RBC 3.17 L Hgb 9.9 L D Hct 29.8 L MCV 93.9 MCH 31.2 H MCHC 33.2 RDW 14.2 Plt Count 224 MPV 9.2 Neut % (Auto) 80.2 H Lymph % (Auto) 14.4 L [place] % (Auto) 4.4 Eos % (Auto) 0.3 Baso % (Auto) 0.7 Neut # (Auto) 10.3 H Lymph # (Auto) 1.8 [place] # (Auto) 0.6 Eos # (Auto) 0.0 Baso # (Auto) 0.1 Sodium 146 Potassium 4.9 Chloride 108 H Carbon Dioxide 22 Anion Gap 21 H BUN 71 H Creatinine 1.1 Est GFR ( Amer) > 60 Est GFR (Non-Af Amer) > 60 Random Glucose 112 H Calcium 9.2 Total Bilirubin 0.8 AST 25 ALT 25 Alkaline Phosphatase 47 Troponin I 0.0300 Total Protein 6.5 Albumin 3.5 Globulin 3.0 Albumin/Globulin Ratio 1.2 Lipase 69 Assessment & Plan (1) GI bleed Assessment and Plan: Cardiac krishnamurthy the patient is stable cleared for endoscopy Status: Acute
[2017-09-11 16:05] LABS: B-TYPE NATRIURETIC PEPTIDE 951 pg/ml (0-900)
[2017-09-11] MEDS ORDERED: VIT A PO SCH (17:00)
[2017-09-11] MEDS ORDERED: ZINC PO SCH (17:00)
[2017-09-11] MEDS ORDERED: COPPER PO SCH (17:00)
[2017-09-11] MEDS ORDERED: VIT C PO SCH (17:00)
[2017-09-11] MEDS ORDERED: VIT E PO SCH (17:00)
--- NOTE | 2017-09-11 17:20 | CP.PCM.HP ---
<Sultan Inga - Last Filed: 09/11/17 17:58> History of Present Illness - History of Present Illness History of Present Illness: 87 yo male with a PMHx of HTN, Macular degeneration, TIA and CAD s/p NATHAN to prox LAD on 03/02/17 presentes to ED with c/o adominal pain that started last night associated with 3 episodes of dark coffee ground emesis last night and one dark stool BM today. . States his abdominal pain radiates to lower chest with some shortness of breath. Pt denies seeing any blood in stool. Never had EGD or colonoscopy in the past. Denies diaphoresis, headache, dizzziness, blurry vision, numbness, tingling or focal weakness to limbs. Denies any wt loss , dysuria, hematuria, fever, chills. States he has hx BPH and usually gets up 3 times at night for urination. PMD: Dr. Vazquez Steel Turner: Dr. Forman Past medical hx: HTN, CAD S/P stent on 02/2017, macular degeneration, BPH and TIA Past surgical hx: left knee surgery, proximal LAD stent in 02/2017, prostate scrape 20 yrs ago. Social hx: denies hx smoking cigarettes or ETHOH use Allergies: buspirone: hallucination, PCN Family hx: non-contributory ED COURSE: Vitals: bp 144/64, hr 72, rr 16, temp 98.8, pulse ox 99 Labs: CBC: leukocytosis with left shift CMP: BUN/Cr: 71/1.2 Troponin x 1 neg ProBNP: 951 EKG: Sinus rhythm with first degree AV block. Left BBB. Images: CT Abdomen and pelvis: impression: nonspecific hazy change within the mesentery. This is a nonspecific finding which can be seen with mensenteric edema, lymphedema, hemorrhage and infiltration with inflammatory or neoplastic cells. Varying degrees of SMA stenosis. Colonic diverticulosis w/o evidence for acute diverticulitis. CXR: no active disease Present on Admission - Present on Admission Any Indicators Present on Admission: Yes Review of Systems - Constitutional Constitutional: absent: Chills, Fever - EENT Eyes: absent: Change in Vision Ears: absent: Dizziness Nose/Mouth/Throat: absent: Nasal Congestion, Sore Throat - Cardiovascular Cardiovascular: absent: Diaphoresis, Dyspnea on Exertion - Respiratory Respiratory: absent: Cough - Gastrointestinal Gastrointestinal: Abdominal Pain, Vomiting. absent: Constipation, Diarrhea - Genitourinary Genitourinary: absent: Dysuria, Hematuria - Integumentary Integumentary: absent: Rash - Neurological Neurological: absent: Dizziness, Headaches - Hematologic/Lymphatic Hematologic: absent: Easy Bleeding, Easy Bruising Past Patient History - Past Medical History & Family History Past Medical History?: Yes - Past Social History Alcohol: None Drugs: Denies - CARDIAC Hx Congestive Heart Failure: Yes Hx Hypertension: Yes - NEUROLOGICAL Hx Transient Ischemic Attacks (TIA): Yes - RENAL Hx Chronic Kidney Disease: No - HEMATOLOGICAL/ONCOLOGICAL Hx Human Immunodeficiency Virus (HIV): No - MUSCULOSKELETAL/RHEUMATOLOGICAL Hx Falls: No Hx Unsteady Gait: Yes - PSYCHIATRIC Hx Substance Use: No - SURGICAL HISTORY Hx Coronary Stent: Yes (x2) - ANESTHESIA Hx Anesthesia: Yes Hx Anesthesia Reactions: No Meds Allergies/Adverse Reactions: Allergies Allergy/AdvReac Type Severity Reaction Status Date / Time buspirone [From BuSpar] Allergy RASH Verified 03/06/17 15:27 Penicillins Allergy URTICARIA Verified 03/06/17 15:27 Physical Exam - Constitutional Appears: Non-toxic, No Acute Distress - Head Exam Head Exam: ATRAUMATIC, NORMAL INSPECTION - ENT Exam ENT Exam: Mucous Membranes Dry Additional comments: Foul odor, poor dentition. Dark stain on tongue. - Neck Exam Neck exam: Positive for: Normal Inspection. Negative for: Lymphadenopathy - Respiratory Exam Respiratory Exam: Clear to Auscultation Bilateral, NORMAL BREATHING PATTERN. absent: Rhonchi, Wheezes - Cardiovascular Exam Cardiovascular Exam: REGULAR RHYTHM, +S1, +S2 - GI/Abdominal Exam GI & Abdominal Exam: Normal Bowel Sounds, Soft. absent: Distended, Guarding, Rebound, Rigid, Tenderness - Extremities Exam Extremities exam: Negative for: pedal edema - Back Exam Back exam: absent: CVA tenderness (L), CVA tenderness (R) - Neurological Exam Neurological exam: Alert, CN II-XII Intact, Oriented x3 Additional comments: motor strength 5/5 all extremities, neurovascular intact - Psychiatric Exam Psychiatric exam: Normal Affect, Normal Mood Results - Vital Signs Recent Vital Signs: Last Vital Signs Temp 98.6 F 09/11/17 16:11 Pulse 86 09/11/17 16:11 Resp 16 09/11/17 16:11 BP 120/75 09/11/17 16:11 Pulse Ox 100 09/11/17 16:11 - Labs Result Diagrams: 09/11/17 12:27 09/11/17 12:27 Labs: Laboratory Results - last 24 hr 09/11/17 09/11/17 12:27 12:27 WBC 12.8 H D RBC 3.17 L Hgb 9.9 L D Hct 29.8 L MCV 93.9 MCH 31.2 H MCHC 33.2 RDW 14.2 Plt Count 224 MPV 9.2 Neut % (Auto) 80.2 H Lymph % (Auto) 14.4 L Aurora % (Auto) 4.4 Eos % (Auto) 0.3 Baso % (Auto) 0.7 Neut # (Auto) 10.3 H Lymph # (Auto) 1.8 Aurora # (Auto) 0.6 Eos # (Auto) 0.0 Baso # (Auto) 0.1 Sodium 146 Potassium 4.9 Chloride 108 H Carbon Dioxide 22 Anion Gap 21 H BUN 71 H Creatinine 1.1 Est GFR ( Amer) > 60 Est GFR (Non-Af Amer) > 60 Random Glucose 112 H Calcium 9.2 Total Bilirubin 0.8 AST 25 ALT 25 Alkaline Phosphatase 47 Troponin I 0.0300 NT-Pro-B Natriuret Pep 951 H Total Protein 6.5 Albumin 3.5 Globulin 3.0 Albumin/Globulin Ratio 1.2 Lipase 69 Assessment & Plan - Assessment and Plan (Free Text) Assessment: 87 yo male with a PMHx of HTN, Macular degeneration, TIA and CAD s/p NATHAN to prox LAD on 03/02/17 admitted for coffee ground emesis, abdominal pain and chest pain. Abdominal pain with possible GI bleeding: -Images: CT Abdomen and pelvis: impression: nonspecific hazy change within the mesentery. This is a nonspecific finding which can be seen with mensenteric edema, lymphedema, hemorrhage and infiltration with inflammatory or neoplastic cells. Varying degrees of SMA stenosis. Colonic diverticulosis w/o evidence for acute diverticulitis. -CBC: leukocytosis (wbc 12.8) with left shift, H&H: 9.9/29.8 today (previous H& H 13.0/38.6) -No hx EGD/colonoscopy in the past -F/U GI consult -Start protonix 40 mg ivp q12 -f/u fecal occult -f/u cbc -Chest pain -CAD s/p NATHAN to prox LAD on 03/02/17 -Troponin x 1 neg, f/u troponin x 2 -c/w aspirin 81 mg -c/w ticagrelor 90 mg BID -c/w atorvastatin 80 mg -heart healthy diet -proBNP 951 -f/u Cardio consult HTN -chronic, controlled -c/w carvedilol 25 mg BID -c/w Lisinopril 20 mg karie H/O TIA -chronic -asymptomatic -c/w aspirin DVT prophylaxis -scd's now Diet; NPO <Charly Vazquez - Last Filed: 09/12/17 07:06> Results - Vital Signs Recent Vital Signs: Last Vital Signs Temp 98.8 F 09/12/17 05:46 Pulse 75 09/12/17 05:46 Resp 18 09/12/17 05:46 BP 159/71 H 09/12/17 05:46 Pulse Ox 98 09/12/17 05:46 - Labs Result Diagrams: 09/12/17 05:30 09/12/17 05:30 Labs: Laboratory Results - last 24 hr 09/11/17 09/11/17 09/11/17 12:27 12:27 19:00 WBC 12.8 H D RBC 3.17 L Hgb 9.9 L D Hct 29.8 L MCV 93.9 MCH 31.2 H MCHC 33.2 RDW 14.2 Plt Count 224 MPV 9.2 Neut % (Auto) 80.2 H Lymph % (Auto) 14.4 L Aurora % (Auto) 4.4 Eos % (Auto) 0.3 Baso % (Auto) 0.7 Neut # (Auto) 10.3 H Lymph # (Auto) 1.8 Aurora # (Auto) 0.6 Eos # (Auto) 0.0 Baso # (Auto) 0.1 Sodium 146 Potassium 4.9 Chloride 108 H Carbon Dioxide 22 Anion Gap 21 H BUN 71 H Creatinine 1.1 Est GFR ( Amer) > 60 Est GFR (Non-Af Amer) > 60 Random Glucose 112 H Calcium 9.2 Total Bilirubin 0.8 AST 25 ALT 25 Alkaline Phosphatase 47 Troponin I 0.0300 0.0470 NT-Pro-B Natriuret Pep 951 H Total Protein 6.5 Albumin 3.5 Globulin 3.0 Albumin/Globulin Ratio 1.2 Lipase 69 Stool Occult Blood 09/11/17 09/12/17 09/12/17 19:20 05:30 05:30 WBC 11.0 H RBC 2.28 L Hgb 7.3 L D Hct 21.4 L MCV 94.0 MCH 31.9 H MCHC 33.9 RDW 14.1 Plt Count 186 MPV 9.7 Neut % (Auto) 63.0 Lymph % (Auto) 25.7 Aurora % (Auto) 9.6 Eos % (Auto) 0.9 Baso % (Auto) 0.8 Neut # (Auto) 6.9 Lymph # (Auto) 2.8 Aurora # (Auto) 1.1 H Eos # (Auto) 0.1 Baso # (Auto) 0.1 Sodium 148 Potassium 3.9 Chloride 112 H Carbon Dioxide 21 L Anion Gap 19 BUN 68 H Creatinine 1.2 Est GFR ( Amer) > 60 Est GFR (Non-Af Amer) 57 Random Glucose 89 Calcium 8.5 Total Bilirubin 0.6 AST 24 ALT 30 Alkaline Phosphatase 44 Troponin I 0.0660 NT-Pro-B Natriuret Pep Total Protein 5.6 L Albumin 3.0 L Globulin 2.6 Albumin/Globulin Ratio 1.1 Lipase Stool Occult Blood Positive H Attending/Attestation - Attestation I have personally seen and examined this patient.: Yes I have fully participated in the care of the patient.: Yes I have reviewed all pertinent clinical information: Yes
[2017-09-11] MEDS: Sodium Chloride 0.9% 1,000 ML IV SCH (19:24)
[2017-09-12] MEDS: Sodium Chloride 0.9% 1,000 ML IV SCH ×2 (03:30→17:38)
[2017-09-12 06:27] LABS: BASO # 0.1 K/uL (0.0-0.2); BASO % 0.8 % (0.0-2.0); EOS # 0.1 K/uL (0.0-0.7); EOS % 0.9 % (0.0-4.0); HEMOGLOBIN 7.3 g/dL (12.0-18.0); LYMPH # 2.8 K/uL (1.0-4.3); LYMPH % 25.7 % (20.0-40.0); MEAN CORPUSCULAR HEMOGLOBIN 31.9 pg (27.0-31.0); MEAN CORPUSCULAR HGB CONC 33.9 g/dL (33.0-37.0); MEAN PLATELET VOLUME 9.7 fl (7.2-11.7); MONO # 1.1 K/uL (0.0-0.8); MONO % 9.6 % (0.0-10.0); NEUT # 6.9 K/uL (1.8-7.0); RBC 2.28 Mil/uL (4.40-5.90); RED CELL DISTRIBUTION WIDTH 14.1 % (11.5-14.5)
[2017-09-12 06:52] LABS: BLOOD UREA NITROGEN 68 mg/dl (9-20); CALCIUM 8.5 mg/dL (8.4-10.2); GFR AFRICAN-AMERICAN > 60; GFR NON-AFRICAN AMERICAN 57
[2017-09-12 06:53] LABS: ALB/GLOB RATIO 1.1 (1.0-2.1); ALT/SGPT 30 U/L (21-72); AST/SGOT 24 U/L (17-59)
[2017-09-12 08:10] LABS: URINE BILIRUBIN NEGATIVE (NEGATIVE); URINE BLOOD NEGATIVE (NEGATIVE); URINE CLARITY CLEAR (Clear); URINE COLOR STRAW (YELLOW); URINE GLUCOSE (UA) NEG (Normal); URINE LEUKOCYTE ESTERASE NEG Leu/uL (Negative); URINE PROTEIN NEGATIVE (NEGATIVE); URINE UROBILINOGEN 0.2-1.0 mg/dL (0.2-1.0)
--- NOTE | 2017-09-12 09:07 | CP.PCM.PN ---
<NirRolando - Last Filed: 09/12/17 13:11> Subjective - Date & Time of Evaluation Date of Evaluation: 09/12/17 Time of Evaluation: 07:20 - Subjective Subjective: 87 y/o M evaluated and examined by bedside. Pt afebrile, reports feeling weak. Pt afebrile, NPO, reports having a very dark stools last night. Objective - Vital Signs/Intake and Output Vital Signs (last 24 hours): Temp Pulse Resp BP Pulse Ox 98.2 F 100 H 18 170/67 H 97 09/12/17 08:09 09/12/17 08:09 09/12/17 08:09 09/12/17 08:09 09/12/17 08:09 Intake and Output: 09/12/17 09/12/17 06:59 18:59 Intake Total 960 Output Total 400 Balance 560 - Medications Medications: Current Medications Aspirin (Ecotrin) 81 mg PO DAILY [facility] Atorvastatin Calcium (Lipitor) 80 mg PO HS [facility] Last Admin: 09/11/17 23:20 Dose: Not Given Carvedilol (Coreg) 25 mg PO Q12 [facility] Last Admin: 09/11/17 21:26 Dose: Not Given Sodium Chloride (Sodium Chloride 0.9%) 1,000 mls @ 120 mls/hr IV .Q8H20M [facility] Stop: 09/12/17 18:46 Last Admin: 09/12/17 03:30 Dose: 120 mls/hr Lisinopril (Zestril) 20 mg PO DAILY [facility] Pantoprazole Sodium (Protonix Inj) 40 mg IVP Q12 [facility] Last Admin: 09/11/17 21:23 Dose: 40 mg Ticagrelor (Brilinta) 90 mg PO Q12 [facility] Last Admin: 09/11/17 21:23 Dose: 90 mg - Labs Labs: 09/12/17 05:30 09/12/17 05:30 - Constitutional Appears: Chronically Ill - Head Exam Head Exam: NORMAL INSPECTION - Eye Exam Eye Exam: Normal appearance - ENT Exam ENT Exam: Mucous Membranes Dry - Neck Exam Neck Exam: Full ROM. absent: Meningismus - Respiratory Exam Respiratory Exam: Clear to Ausculation Bilateral, NORMAL BREATHING PATTERN - Cardiovascular Exam Cardiovascular Exam: +S1, +S2 - GI/Abdominal Exam GI & Abdominal Exam: Soft, Normal Bowel Sounds. absent: Guarding, Rigid, Tenderness - Extremities Exam Extremities Exam: absent: Calf Tenderness, Tenderness - Neurological Exam Neurological Exam: Alert, Awake, Oriented x3 Assessment and Plan - Assessment and Plan (Free Text) Assessment: 87 y/o M with a PMHx of HTN, TIA and CAD s/p NATHAN to prox LAD on 03/02/17 admitted for coffee ground emesis, abdominal pain and chest pain. -CT Abdomen and pelvis: nonspecific hazy change within the mesentery. This is a nonspecific finding which can be seen with mensenteric edema, lymphedema, hemorrhage and infiltration with inflammatory or neoplastic cells. Varying degrees of SMA stenosis. Colonic diverticulosis w/o evidence for acute diverticulitis. Abdominal pain with GI bleeding: -No hx EGD/colonoscopy in the past -Continue w/ Protonix 40 mg IVP Q12 -FOBT: positive. -Hgb dropped to 7.3 from 9.9. -F/U GI recommendations. Anemia due to acute UGI bleeding -Hgb dropped to 7.3 from 9.9. -Will transfuse 2 PRBC's today. Chest pain S/P CAD w/ LAD-NATHAN on 03/02/17 -Troponin negative x3. -c/w aspirin 81 mg, Ticagrelor 90 mg BID, atorvastatin 80 mg -f/u Cardiology recommendations about continuing Ticagrelor PO. HTN -chronic, controlled -c/w carvedilol 25 mg BID -c/w Lisinopril 20 mg karie H/O TIA -chronic -asymptomatic -c/w aspirin DVT prophylaxis -scd's now Diet NPO <Charly Vazquez - Last Filed: 09/13/17 10:30> Objective - Vital Signs/Intake and Output Vital Signs (last 24 hours): Temp Pulse Resp BP Pulse Ox 97.8 F 64 18 142/58 L 97 09/13/17 07:41 09/13/17 09:55 09/13/17 07:41 09/13/17 09:55 09/13/17 07:41 - Medications Medications: Current Medications Aspirin (Ecotrin) 81 mg PO DAILY [facility] Last Admin: 09/12/17 17:38 Dose: Not Given Atorvastatin Calcium (Lipitor) 80 mg PO HS [facility] Last Admin: 09/12/17 21:02 Dose: 80 mg Carvedilol (Coreg) 25 mg PO Q12 [facility] Last Admin: 09/13/17 09:54 Dose: 25 mg Sodium Chloride (Sodium Chloride 0.9%) 1,000 mls @ 75 mls/hr IV .[id number] [facility] Stop: 09/13/17 21:04 Last Admin: 09/12/17 23:00 Dose: 75 mls/hr Lisinopril (Zestril) 20 mg PO DAILY [facility] Last Admin: 09/13/17 09:55 Dose: 20 mg Pantoprazole Sodium (Protonix Inj) 40 mg IVP Q12 [facility] Last Admin: 09/13/17 09:55 Dose: 40 mg Ticagrelor (Brilinta) 90 mg PO Q12 [facility] Last Admin: 09/12/17 17:38 Dose: Not Given - Labs Labs: 09/13/17 04:50 09/13/17 04:50 Attending/Attestation - Attestation I have personally seen and examined this patient.: Yes I have fully participated in the care of the patient.: Yes I have reviewed all pertinent clinical information, including history, physical exam and plan: Yes
--- NOTE | 2017-09-12 09:39 | CARD ---
APPROVED REPORT EKG Measurement Heart [id number] NC 214P5 [id number] <Conclusion> Sinus rhythm with 1st degree AV block Left bundle branch block Abnormal ECG
--- NOTE | 2017-09-12 18:01 | CARD ---
APPROVED REPORT EKG Measurement Heart [id number] MA 200P24 [id number] <Conclusion> Sinus rhythm with premature atrial complexes Left bundle branch block Abnormal ECG
[2017-09-12] MEDS ORDERED: Sodium Chloride 0.9% 1,000 ML IV SCH (21:15)
[2017-09-13 05:40] LABS: HEMOGLOBIN 8.4 g/dL (12.0-18.0); MEAN CELL VOLUME 94.4 fl (80.0-94.0); MEAN CORPUSCULAR HEMOGLOBIN 31.3 pg (27.0-31.0); MEAN CORPUSCULAR HGB CONC 33.1 g/dL (33.0-37.0); RBC 2.7 Mil/uL (4.40-5.90); WHITE BLOOD COUNT 9.3 K/uL (4.8-10.8)
[2017-09-13 06:16] LABS: ALB/GLOB RATIO 1.2 (1.0-2.1); ALT/SGPT 35 U/L (21-72); AST/SGOT 39 U/L (17-59); BLOOD UREA NITROGEN 45 mg/dl (9-20); CALCIUM 8.1 mg/dL (8.4-10.2); GFR AFRICAN-AMERICAN > 60; GFR NON-AFRICAN AMERICAN > 60
--- NOTE | 2017-09-13 09:45 | PQF GENQUE ---
This form is a permanent part of the medical record 09/13/17 Dr. Robert, Would you please clarify the Type of CHF ? Documentation in the H&P PMH template history of CHF. ECHO from 02/2017: LV normal size. Mild to moderate LVH. LVEF is within the normal range. Flattened septum. Grade 1 abnormal relaxation pattern. Aortic valve is severely sclerotic. CXR No active disease. BNP 951 Medication includes: Zestril, Coreg Clarification of your documentation is requested to better reflect the severity of illness and intensity of treatment of your patient. Indicators present PHYSICIAN'S RESPONSE Based on your medical judgment of the clinical indicators outlined above please clarify the following: [] Practitioner response [] If unable to determine, please check the box, sign and date. Present On Admission (POA) Indicator: [] Present at the time of admission [] Not present at the time of admission [] Clinically Undetermined In responding to this query, please exercise your independent professional judgment. The fact that a question is asked does not imply that any particular answer is desired or expected. Thank you for your clarification on this documentation. If you have any questions please call:ext [phone] * Thank you, Stella Courtney RN CDMP MTDD
--- NOTE | 2017-09-13 09:49 | CP.PCM.PN ---
<Aston Loyola - Last Filed: 09/13/17 10:41> Subjective - Date & Time of Evaluation Date of Evaluation: 09/13/17 Time of Evaluation: 07:00 - Subjective Subjective: 87 y/o M seen and examined by bedside. Pt reports feeling OK. Pt afebrile, tolerating liquid diet, no overnight events. Objective - Vital Signs/Intake and Output Vital Signs (last 24 hours): Temp Pulse Resp BP Pulse Ox 97.8 F 64 18 142/58 L 97 09/13/17 07:41 09/13/17 07:41 09/13/17 07:41 09/13/17 07:41 09/13/17 07:41 - Medications Medications: Current Medications Aspirin (Ecotrin) 81 mg PO DAILY [facility] Last Admin: 09/12/17 17:38 Dose: Not Given Atorvastatin Calcium (Lipitor) 80 mg PO HS [facility] Last Admin: 09/12/17 21:02 Dose: 80 mg Carvedilol (Coreg) 25 mg PO Q12 [facility] Last Admin: 09/12/17 21:01 Dose: 25 mg Sodium Chloride (Sodium Chloride 0.9%) 1,000 mls @ 75 mls/hr IV .[id number] [facility] Stop: 09/13/17 21:04 Last Admin: 09/12/17 23:00 Dose: 75 mls/hr Lisinopril (Zestril) 20 mg PO DAILY [facility] Last Admin: 09/12/17 09:49 Dose: 20 mg Pantoprazole Sodium (Protonix Inj) 40 mg IVP Q12 [facility] Last Admin: 09/12/17 21:01 Dose: 40 mg Ticagrelor (Brilinta) 90 mg PO Q12 [facility] Last Admin: 09/12/17 17:38 Dose: Not Given - Labs Labs: 09/13/17 04:50 09/13/17 04:50 - Constitutional Appears: No Acute Distress, Chronically Ill - Head Exam Head Exam: ATRAUMATIC, NORMAL INSPECTION - Eye Exam Eye Exam: EOMI, Normal appearance - ENT Exam ENT Exam: Mucous Membranes Moist - Neck Exam Neck Exam: Full ROM - Respiratory Exam Respiratory Exam: Clear to Ausculation Bilateral, NORMAL BREATHING PATTERN - Cardiovascular Exam Cardiovascular Exam: +S1, +S2 - GI/Abdominal Exam GI & Abdominal Exam: Soft, Tenderness, Normal Bowel Sounds. absent: Guarding, Rigid - Extremities Exam Extremities Exam: absent: Calf Tenderness, Pedal Edema - Back Exam Back Exam: Full ROM - Neurological Exam Neurological Exam: Alert, Awake, Oriented x3 Assessment and Plan - Assessment and Plan (Free Text) Assessment: 87 y/o M with a PMHx of HTN, TIA and CAD s/p NATHAN to prox LAD on 03/02/17 admitted for coffee ground emesis, abdominal pain and chest pain. -CT Abdomen and pelvis: nonspecific hazy change within the mesentery. This is a nonspecific finding which can be seen with mensenteric edema, lymphedema, hemorrhage and infiltration with inflammatory or neoplastic cells. Varying degrees of SMA stenosis. Colonic diverticulosis w/o evidence for acute diverticulitis. Abdominal pain with GI bleeding: -Endoscopy to be performed tomorrow Sunday. -Hgb 8.4 s/p 2 units of PRBC's. -CBC ordered for this afternoon. If Hgb<8/0, will transfuse again. -NPO after midnight. -GI recommendations appreciated. -Cardiology cleared pt for endosccopy. Anemia due to acute UGI bleeding -Hgb 8.4 s/p 2 units of PRBC's. -If Hgb<8/0, will transfuse again. Chronic Heart Failure-Diastolic -S/P CAD w/ LAD-NATHAN on 03/02/17 -Stable, acute heart failure ruled out. -Troponin negative x3. -Aspirin and Ticagrelor on hold, as per cardiology, -c/w atorvastatin 80 mg -Cardiology celared pt for endosccopy. HTN -chronic, controlled -c/w carvedilol 25 mg BID -c/w Lisinopril 20 mg karie H/O TIA -chronic -asymptomatic DVT prophylaxis -scd's now Diet -liquid diet. -NPO <Jluis Jeter - Last Filed: 09/14/17 06:46> Objective - Vital Signs/Intake and Output Vital Signs (last 24 hours): Temp Pulse Resp BP Pulse Ox 97.7 F 57 L 18 139/71 97 09/14/17 04:42 09/14/17 04:42 09/14/17 04:42 09/14/17 04:42 09/14/17 04:42 Intake and Output: 09/13/17 09/14/17 18:59 06:59 Intake Total 900 Output Total 900 Balance 0 - Medications Medications: Current Medications Aspirin (Ecotrin) 81 mg PO DAILY [facility] Last Admin: 09/12/17 17:38 Dose: Not Given Atorvastatin Calcium (Lipitor) 80 mg PO HS [facility] Last Admin: 09/13/17 21:40 Dose: 80 mg Carvedilol (Coreg) 25 mg PO Q12 [facility] Last Admin: 09/13/17 21:39 Dose: 25 mg Lisinopril (Zestril) 20 mg PO DAILY [facility] Last Admin: 09/13/17 09:55 Dose: 20 mg Pantoprazole Sodium (Protonix Inj) 40 mg IVP Q12 [facility] Last Admin: 09/13/17 21:39 Dose: 40 mg Ticagrelor (Brilinta) 90 mg PO Q12 [facility] Last Admin: 09/12/17 17:38 Dose: Not Given - Labs Labs: 09/14/17 04:50 09/14/17 04:50 Attending/Attestation - Attestation I have personally seen and examined this patient.: Yes I have fully participated in the care of the patient.: Yes I have reviewed all pertinent clinical information, including history, physical exam and plan: Yes
[2017-09-13 12:46] LABS: MEAN CELL VOLUME 93.3 fl (80.0-94.0); MEAN CORPUSCULAR HGB CONC 34.3 g/dL (33.0-37.0); RBC 2.5 Mil/uL (4.40-5.90); RED CELL DISTRIBUTION WIDTH 14.7 % (11.5-14.5); WHITE BLOOD COUNT 7.1 K/uL (4.8-10.8)
[2017-09-14 05:29] LABS: HEMOGLOBIN 10.2 g/dL (12.0-18.0); MEAN CELL VOLUME 91.8 fl (80.0-94.0); MEAN CORPUSCULAR HEMOGLOBIN 31.2 pg (27.0-31.0); RBC 3.28 Mil/uL (4.40-5.90); RED CELL DISTRIBUTION WIDTH 14.9 % (11.5-14.5); WHITE BLOOD COUNT 8.3 K/uL (4.8-10.8)
[2017-09-14 05:51] LABS: ALBUMIN 2.7 g/dL (3.5-5.0); ALT/SGPT 36 U/L (21-72); AST/SGOT 39 U/L (17-59); BLOOD UREA NITROGEN 27 mg/dl (9-20); CALCIUM 7.9 mg/dL (8.4-10.2); GFR AFRICAN-AMERICAN > 60; GFR NON-AFRICAN AMERICAN > 60
--- NOTE | 2017-09-14 06:10 | CP.PCM.PN ---
Objective - Vital Signs/Intake and Output Vital Signs (last 24 hours): Temp Pulse Resp BP Pulse Ox 97.7 F 57 L 18 139/71 97 09/14/17 04:42 09/14/17 04:42 09/14/17 04:42 09/14/17 04:42 09/14/17 04:42 Intake and Output: 09/13/17 09/14/17 18:59 06:59 Intake Total 900 Output Total 900 Balance 0 - Medications Medications: Current Medications Aspirin (Ecotrin) 81 mg PO DAILY [facility] Last Admin: 09/12/17 17:38 Dose: Not Given Atorvastatin Calcium (Lipitor) 80 mg PO HS [facility] Last Admin: 09/13/17 21:40 Dose: 80 mg Carvedilol (Coreg) 25 mg PO Q12 [facility] Last Admin: 09/13/17 21:39 Dose: 25 mg Lisinopril (Zestril) 20 mg PO DAILY [facility] Last Admin: 09/13/17 09:55 Dose: 20 mg Pantoprazole Sodium (Protonix Inj) 40 mg IVP Q12 [facility] Last Admin: 09/13/17 21:39 Dose: 40 mg Ticagrelor (Brilinta) 90 mg PO Q12 [facility] Last Admin: 09/12/17 17:38 Dose: Not Given - Labs Labs: 09/14/17 04:50 09/14/17 04:50 Assessment and Plan - Assessment and Plan (Free Text) Assessment: 87 y/o M with a PMHx of HTN, TIA and CAD s/p NATHAN to prox LAD on 03/02/17 admitted for coffee ground emesis, abdominal pain and chest pain. -CT Abdomen and pelvis: nonspecific hazy change within the mesentery. This is a nonspecific finding which can be seen with mensenteric edema, lymphedema, hemorrhage and infiltration with inflammatory or neoplastic cells. Varying degrees of SMA stenosis. Colonic diverticulosis w/o evidence for acute diverticulitis. Abdominal pain with GI bleeding: -Endoscopy to be performed tomorrow Sunday. -Hgb 8.4 s/p 2 units of PRBC's. -CBC ordered for this afternoon. If Hgb<8/0, will transfuse again. -NPO after midnight. -GI recommendations appreciated. -Cardiology cleared pt for endosccopy. Anemia due to acute UGI bleeding -Hgb 8.4 s/p 2 units of PRBC's. -If Hgb<8/0, will transfuse again. Chronic Heart Failure-Diastolic -S/P CAD w/ LAD-NATHAN on 03/02/17 -Stable, acute heart failure ruled out. -Troponin negative x3. -Aspirin and Ticagrelor on hold, as per cardiology, -c/w atorvastatin 80 mg -Cardiology celared pt for endosccopy. HTN -chronic, controlled -c/w carvedilol 25 mg BID -c/w Lisinopril 20 mg karie H/O TIA -chronic -asymptomatic DVT prophylaxis -scd's now Diet -liquid diet. -NPO
[2017-09-14] MEDS ORDERED: Lactated Ringer's 500 ML IV ONE (09:42)
[2017-09-14] MEDS ORDERED: Midazolam 2 MG/2 ML VIAL ONE (11:25)
[2017-09-14] MEDS ORDERED: Propofol 10 mg/ml Inj (20 ML) ONE (11:26)
[2017-09-14 14:34] LABS: HEMOGLOBIN 11.5 g/dL (12.0-18.0)
--- NOTE | 2017-09-14 15:17 | CP.PCM.DIS ---
<Aston Loyola - Last Filed: 09/14/17 15:13> Provider - Provider Date of Admission: 09/12/17 20:02 Attending physician: Charly Vazquez MD Primary care physician: Dr. Vazquez. Consults: GI: Dr Reyes. Cardiology: Dr De Jesus. Time Spent in preparation of Discharge (in minutes): 25 Diagnosis - Discharge Diagnosis (1) GI bleed Status: Acute Comment: -Endoscopy showed erosive gastritis. -F/U colonoscopy outpatient as per Dr Reyes. Hospital Course - Lab Results Lab Results: Most Recent Lab Values WBC 8.3 K/uL (4.8-10.8) 09/14/17 04:50 RBC 3.28 Mil/uL (4.40-5.90) L 09/14/17 04:50 Hgb 11.5 g/dL (12.0-18.0) L 09/14/17 14:25 Hct 33.1 % (35.0-51.0) L 09/14/17 14:25 MCV 91.8 fl (80.0-94.0) 09/14/17 04:50 MCH 31.2 pg (27.0-31.0) H 09/14/17 04:50 MCHC 34.0 g/dL (33.0-37.0) 09/14/17 04:50 RDW 14.9 % (11.5-14.5) H 09/14/17 04:50 Plt Count 160 K/uL (130-400) 09/14/17 04:50 MPV 9.7 fl (7.2-11.7) 09/12/17 05:30 Neut % (Auto) 63.0 % (50.0-75.0) 09/12/17 05:30 Lymph % (Auto) 25.7 % (20.0-40.0) 09/12/17 05:30 [place] % (Auto) 9.6 % (0.0-10.0) 09/12/17 05:30 Eos % (Auto) 0.9 % (0.0-4.0) 09/12/17 05:30 Baso % (Auto) 0.8 % (0.0-2.0) 09/12/17 05:30 Neut # (Auto) 6.9 K/uL (1.8-7.0) 09/12/17 05:30 Lymph # (Auto) 2.8 K/uL (1.0-4.3) 09/12/17 05:30 [place] # (Auto) 1.1 K/uL (0.0-0.8) H 09/12/17 05:30 Eos # (Auto) 0.1 K/uL (0.0-0.7) 09/12/17 05:30 Baso # (Auto) 0.1 K/uL (0.0-0.2) 09/12/17 05:30 Retic Count 2.0 % (0.5-1.5) H 09/14/17 14:43 Sodium 141 mmol/l (132-148) 09/14/17 04:50 Potassium 4.3 MMOL/L (3.6-5.0) 09/14/17 04:50 Chloride 109 mmol/L (98-107) H 09/14/17 04:50 Carbon Dioxide 24 mmol/L (22-30) 09/14/17 04:50 Anion Gap 12 (10-20) 09/14/17 04:50 BUN 27 mg/dl (9-20) H 09/14/17 04:50 Creatinine 1.1 mg/dl (0.8-1.5) 09/14/17 04:50 Est GFR ( Amer) > 60 09/14/17 04:50 Est GFR (Non-Af Amer) > 60 09/14/17 04:50 Random Glucose 89 mg/dL (75-110) 09/14/17 04:50 Calcium 7.9 mg/dL (8.4-10.2) L 09/14/17 04:50 Total Bilirubin 1.8 mg/dl (0.2-1.3) H 09/14/17 04:50 AST 39 U/L (17-59) 09/14/17 04:50 ALT 36 U/L (21-72) 09/14/17 04:50 Alkaline Phosphatase 49 U/L (38-126) 09/14/17 04:50 Troponin I 0.0660 ng/mL (0.00-0.120) 09/12/17 05:30 NT-Pro-B Natriuret Pep 951 pg/ml (0-900) H 09/11/17 12:27 Total Protein 5.3 G/DL (6.3-8.2) L 09/14/17 04:50 Albumin 2.7 g/dL (3.5-5.0) L 09/14/17 04:50 Globulin 2.6 gm/dL (2.2-3.9) 09/14/17 04:50 Albumin/Globulin Ratio 1.0 (1.0-2.1) 09/14/17 04:50 Lipase 69 U/L (23-300) 09/11/17 12:27 Urine Color Straw (YELLOW) 09/12/17 08:00 Urine Clarity Clear (Clear) 09/12/17 08:00 Urine pH 5.0 (5.0-8.0) 09/12/17 08:00 Ur Specific [place] 1.018 (1.003-1.030) 09/12/17 08:00 Urine Protein Negative mg/dL (NEGATIVE) 09/12/17 08:00 Urine Glucose (UA) Neg mg/dL (Normal) 09/12/17 08:00 Urine Ketones Negative mg/dL (NEGATIVE) 09/12/17 08:00 Urine Blood Negative (NEGATIVE) 09/12/17 08:00 Urine Nitrate Negative (NEGATIVE) 09/12/17 08:00 Urine Bilirubin Negative (NEGATIVE) 09/12/17 08:00 Urine Urobilinogen 0.2-1.0 mg/dL (0.2-1.0) 09/12/17 08:00 Ur Leukocyte Esterase Neg Eileen/uL (Negative) 09/12/17 08:00 Urine RBC (Auto) < 1 /hpf (0-3) 09/12/17 08:00 Urine Microscopic WBC 2 /hpf (0-5) 09/12/17 08:00 Stool Occult Blood Positive (NEGATIVE) H 09/11/17 19:20 Blood Type A POSITIVE 09/12/17 09:14 Blood Type Confirm A POSITIVE 09/12/17 11:07 Antibody Screen Negative 09/12/17 09:14 Crossmatch See Detail 09/12/17 09:14 BBK History Checked No verified bt 09/12/17 09:14 - Hospital Course Hospital Course: 87 y/o male with a PMHx of HTN, TIA and CAD s/p NATHAN to prox LAD on 03/02/17 admitted for evaluation of upper GI bleeding. -Brilinta and Aspirin were stopped as per transmissions systems operator. -Pt received 4 units of PRBC's, 2 units on 09/12/17 and 2 units on the night of 09/13/17. -Endoscopy performed by Dr Reyes, showed erosive gastritis. Repeated H/H today(09/14/17) showed 11.5/33.1, from 10.2/30.1 early today. Pt hemodinamically stable, afebrile, with NO more episodes of hematemesis. Pt will f/u with PMD within 1 week and GI for colonoscopy. MEDS: Pt to resume home medications including Brillinta and Aspirin. PO Pantoprazole 40mg daily was added. - Date & Time of H&P Date of H&P: 09/11/17 Time of H&P: 17:19 Discharge Exam - Head Exam Head Exam: ATRAUMATIC, NORMOCEPHALIC - Eye Exam Eye Exam: Normal appearance - ENT Exam ENT Exam: Mucous Membranes Moist - Neck Exam Neck exam: Full Rom - Respiratory Exam Respiratory Exam: NORMAL BREATHING PATTERN, UNREMARKABLE - Cardiovascular Exam Cardiovascular Exam: +S1, +S2. absent: Tachycardia - GI/Abdominal Exam GI & Abdominal Exam: Normal Bowel Sounds, Soft. absent: Distended, Guarding, Tenderness - Neurological Exam Neurological exam: Alert, Oriented x3 - Psychiatric Exam Psychiatric exam: Normal Affect, Normal Mood Discharge Plan - Discharge Medications Prescriptions: Pantoprazole Sodium [Protonix] 40 mg PO DAILY #30 ect Pantoprazole Sodium [Protonix] 40 mg PO DAILY 30 Days #30 ect - Follow Up Plan Condition: FAIR Disposition: HOME/ ROUTINE Instructions: Gastrointestinal Bleeding (DC) Additional Instructions: -Please f/u with PCP within 1 week. -F/U with GI specialist, Dr Reyes for colonoscopy procedure. -Continue with your home medications. Referrals: Sadi Forman MD [Staff Provider] - Charly Vazquez MD [Family Provider] - Brenden Reyes MD, PhD [Staff Provider] - <Jluis Jeter - Last Filed: 09/17/17 06:59> Provider - Provider Date of Admission: 09/12/17 20:02 Attending physician: Charly Vazquez MD Hospital Course - Lab Results Lab Results: Most Recent Lab Values WBC 8.3 K/uL (4.8-10.8) 09/14/17 04:50 RBC 3.28 Mil/uL (4.40-5.90) L 09/14/17 04:50 Hgb 11.5 g/dL (12.0-18.0) L 09/14/17 14:25 Hct 33.1 % (35.0-51.0) L 09/14/17 14:25 MCV 91.8 fl (80.0-94.0) 09/14/17 04:50 MCH 31.2 pg (27.0-31.0) H 09/14/17 04:50 MCHC 34.0 g/dL (33.0-37.0) 09/14/17 04:50 RDW 14.9 % (11.5-14.5) H 09/14/17 04:50 Plt Count 160 K/uL (130-400) 09/14/17 04:50 MPV 9.7 fl (7.2-11.7) 09/12/17 05:30 Neut % (Auto) 63.0 % (50.0-75.0) 09/12/17 05:30 Lymph % (Auto) 25.7 % (20.0-40.0) 09/12/17 05:30 [place] % (Auto) 9.6 % (0.0-10.0) 09/12/17 05:30 Eos % (Auto) 0.9 % (0.0-4.0) 09/12/17 05:30 Baso % (Auto) 0.8 % (0.0-2.0) 09/12/17 05:30 Neut # (Auto) 6.9 K/uL (1.8-7.0) 09/12/17 05:30 Lymph # (Auto) 2.8 K/uL (1.0-4.3) 09/12/17 05:30 [place] # (Auto) 1.1 K/uL (0.0-0.8) H 09/12/17 05:30 Eos # (Auto) 0.1 K/uL (0.0-0.7) 09/12/17 05:30 Baso # (Auto) 0.1 K/uL (0.0-0.2) 09/12/17 05:30 Retic Count 2.0 % (0.5-1.5) H 09/14/17 14:43 Sodium 141 mmol/l (132-148) 09/14/17 04:50 Potassium 4.3 MMOL/L (3.6-5.0) 09/14/17 04:50 Chloride 109 mmol/L (98-107) H 09/14/17 04:50 Carbon Dioxide 24 mmol/L (22-30) 09/14/17 04:50 Anion Gap 12 (10-20) 09/14/17 04:50 BUN 27 mg/dl (9-20) H 09/14/17 04:50 Creatinine 1.1 mg/dl (0.8-1.5) 09/14/17 04:50 Est GFR ( Amer) > 60 09/14/17 04:50 Est GFR (Non-Af Amer) > 60 09/14/17 04:50 Random Glucose 89 mg/dL (75-110) 09/14/17 04:50 Calcium 7.9 mg/dL (8.4-10.2) L 09/14/17 04:50 Total Bilirubin 1.8 mg/dl (0.2-1.3) H 09/14/17 04:50 AST 39 U/L (17-59) 09/14/17 04:50 ALT 36 U/L (21-72) 09/14/17 04:50 Alkaline Phosphatase 49 U/L (38-126) 09/14/17 04:50 Troponin I 0.0660 ng/mL (0.00-0.120) 09/12/17 05:30 NT-Pro-B Natriuret Pep 951 pg/ml (0-900) H 09/11/17 12:27 Total Protein 5.3 G/DL (6.3-8.2) L 09/14/17 04:50 Albumin 2.7 g/dL (3.5-5.0) L 09/14/17 04:50 Globulin 2.6 gm/dL (2.2-3.9) 09/14/17 04:50 Albumin/Globulin Ratio 1.0 (1.0-2.1) 09/14/17 04:50 Lipase 69 U/L (23-300) 09/11/17 12:27 Urine Color Straw (YELLOW) 09/12/17 08:00 Urine Clarity Clear (Clear) 09/12/17 08:00 Urine pH 5.0 (5.0-8.0) 09/12/17 08:00 Ur Specific [place] 1.018 (1.003-1.030) 09/12/17 08:00 Urine Protein Negative mg/dL (NEGATIVE) 09/12/17 08:00 Urine Glucose (UA) Neg mg/dL (Normal) 09/12/17 08:00 Urine Ketones Negative mg/dL (NEGATIVE) 09/12/17 08:00 Urine Blood Negative (NEGATIVE) 09/12/17 08:00 Urine Nitrate Negative (NEGATIVE) 09/12/17 08:00 Urine Bilirubin Negative (NEGATIVE) 09/12/17 08:00 Urine Urobilinogen 0.2-1.0 mg/dL (0.2-1.0) 09/12/17 08:00 Ur Leukocyte Esterase Neg Eileen/uL (Negative) 09/12/17 08:00 Urine RBC (Auto) < 1 /hpf (0-3) 09/12/17 08:00 Urine Microscopic WBC 2 /hpf (0-5) 09/12/17 08:00 Stool Occult Blood Positive (NEGATIVE) H 09/11/17 19:20 Blood Type A POSITIVE 09/12/17 09:14 Blood Type Confirm A POSITIVE 09/12/17 11:07 Antibody Screen Negative 09/12/17 09:14 Crossmatch See Detail 09/12/17 09:14 BBK History Checked No verified bt 09/12/17 09:14 Attending/Attestation - Attestation I have personally seen and examined this patient.: Yes I have fully participated in the care of the patient.: Yes I have reviewed all pertinent clinical information, including history, physical exam and plan: Yes
--- NOTE | 2017-09-14 16:27 | CP.PCM.PN ---
<NirRolando - Last Filed: 09/14/17 16:13> Subjective - Date & Time of Evaluation Date of Evaluation: 09/14/17 Time of Evaluation: 07:00 - Subjective Subjective: 87 y/o M evaluated and examined by bedside. Pt reports NO more coffee-ground vomiting and abdominal pain has resolved. Pt afebrile, aware endoscopy will be performed later today. Objective - Vital Signs/Intake and Output Vital Signs (last 24 hours): Temp Pulse Resp BP Pulse Ox 97.2 F L 54 L 20 160/63 H 96 09/14/17 15:43 09/14/17 15:43 09/14/17 15:43 09/14/17 15:43 09/14/17 15:43 Intake and Output: 09/14/17 09/14/17 06:59 18:59 Intake Total 100 Balance 100 - Medications Medications: Current Medications Aspirin (Ecotrin) 81 mg PO DAILY [facility] Last Admin: 09/12/17 17:38 Dose: Not Given Atorvastatin Calcium (Lipitor) 80 mg PO HS [facility] Last Admin: 09/13/17 21:40 Dose: 80 mg Carvedilol (Coreg) 25 mg PO Q12 [facility] Last Admin: 09/14/17 11:19 Dose: Not Given Lisinopril (Zestril) 20 mg PO DAILY [facility] Last Admin: 09/14/17 11:20 Dose: Not Given Pantoprazole Sodium (Protonix Inj) 40 mg IVP Q12 [facility] Last Admin: 09/14/17 11:20 Dose: Not Given Ticagrelor (Brilinta) 90 mg PO Q12 [facility] Last Admin: 09/12/17 17:38 Dose: Not Given - Labs Labs: 09/14/17 14:25 09/14/17 04:50 - Constitutional Appears: No Acute Distress - Head Exam Head Exam: ATRAUMATIC - Eye Exam Eye Exam: Normal appearance - ENT Exam ENT Exam: Mucous Membranes Moist - Neck Exam Neck Exam: Full ROM - Respiratory Exam Respiratory Exam: NORMAL BREATHING PATTERN - Cardiovascular Exam Cardiovascular Exam: +S1, +S2 - GI/Abdominal Exam GI & Abdominal Exam: Soft, Normal Bowel Sounds. absent: Guarding, Rigid, Tenderness - Extremities Exam Extremities Exam: Joint Swelling - Neurological Exam Neurological Exam: Alert, Awake, Oriented x3 Assessment and Plan (1) GI bleed Status: Acute - Assessment and Plan (Free Text) Assessment: 87 y/o M with a PMHx of HTN, TIA and CAD s/p NATHAN to prox LAD on 03/02/17 admitted for coffee ground emesis, abdominal pain and chest pain. Plan: Upper GI tract bleeding: -No more coffee-ground emesis reported since yesterday. -Endoscopy performed today: erosive gastritis. -GI recommendations appreciated. -Colonoscopy to be performed as outpatient. -Monitor VS. Anemia due to acute GI bleeding -VS stable. -S/P 2 PRBC's last night. -H/H 10.2/30.1 today's morning. -H/H this afternoon: 11.5/33.1 -4 PRBC's transfused in total. Chronic Heart Failure-Diastolic -S/P CAD w/ LAD-NATHAN on 03/02/17 -Stable, acute heart failure ruled out. -Troponin negative x3. -Will c/w Aspirin and Ticagrelor. HTN -chronic, controlled -c/w home medications. -c/w carvedilol 25 mg BID -c/w Lisinopril 20 mg karie H/O TIA -chronic -asymptomatic DVT prophylaxis -scd's now Diet -Heart Health regular diet. <Jluis Jeter - Last Filed: 09/17/17 07:00> Objective - Vital Signs/Intake and Output Vital Signs (last 24 hours): Temp Pulse Resp BP Pulse Ox 97.6 F 62 18 148/72 97 09/15/17 07:57 09/15/17 08:33 09/15/17 07:57 09/15/17 08:33 09/15/17 07:57 - Labs Labs: 09/14/17 14:25 09/14/17 04:50 Attending/Attestation - Attestation I have personally seen and examined this patient.: Yes I have fully participated in the care of the patient.: Yes I have reviewed all pertinent clinical information, including history, physical exam and plan: Yes
[2017-09-15 00:17] VITALS: RESP 18
[2017-09-15 07:58] VITALS: BP 148/72; PULSE 62; TEMP 97.6; O2SAT 97
--- NOTE | 2017-09-15 09:58 | CP.PCM.DIS ---
Provider - Provider Date of Admission: 09/12/17 20:02 Attending physician: Charly Vazquez MD Primary care physician: Dr. Vazquez Consults: GI: Dr Reyes. Cardiology: Dr De Jesus. Time Spent in preparation of Discharge (in minutes): 30 Diagnosis - Discharge Diagnosis (1) GI bleed Status: Resolved Comment: -Endoscopy showed erosive gastritis. -F/U colonoscopy outpatient as per Dr Reyes. No active bleeding. Now asymptomatic Hospital Course - Lab Results Lab Results: Most Recent Lab Values WBC 8.3 K/uL (4.8-10.8) 09/14/17 04:50 RBC 3.28 Mil/uL (4.40-5.90) L 09/14/17 04:50 Hgb 11.5 g/dL (12.0-18.0) L 09/14/17 14:25 Hct 33.1 % (35.0-51.0) L 09/14/17 14:25 MCV 91.8 fl (80.0-94.0) 09/14/17 04:50 MCH 31.2 pg (27.0-31.0) H 09/14/17 04:50 MCHC 34.0 g/dL (33.0-37.0) 09/14/17 04:50 RDW 14.9 % (11.5-14.5) H 09/14/17 04:50 Plt Count 160 K/uL (130-400) 09/14/17 04:50 MPV 9.7 fl (7.2-11.7) 09/12/17 05:30 Neut % (Auto) 63.0 % (50.0-75.0) 09/12/17 05:30 Lymph % (Auto) 25.7 % (20.0-40.0) 09/12/17 05:30 King % (Auto) 9.6 % (0.0-10.0) 09/12/17 05:30 Eos % (Auto) 0.9 % (0.0-4.0) 09/12/17 05:30 Baso % (Auto) 0.8 % (0.0-2.0) 09/12/17 05:30 Neut # (Auto) 6.9 K/uL (1.8-7.0) 09/12/17 05:30 Lymph # (Auto) 2.8 K/uL (1.0-4.3) 09/12/17 05:30 [place] # (Auto) 1.1 K/uL (0.0-0.8) H 09/12/17 05:30 Eos # (Auto) 0.1 K/uL (0.0-0.7) 09/12/17 05:30 Baso # (Auto) 0.1 K/uL (0.0-0.2) 09/12/17 05:30 Retic Count 2.0 % (0.5-1.5) H 09/14/17 14:43 Sodium 141 mmol/l (132-148) 09/14/17 04:50 Potassium 4.3 MMOL/L (3.6-5.0) 09/14/17 04:50 Chloride 109 mmol/L (98-107) H 09/14/17 04:50 Carbon Dioxide 24 mmol/L (22-30) 09/14/17 04:50 Anion Gap 12 (10-20) 09/14/17 04:50 BUN 27 mg/dl (9-20) H 09/14/17 04:50 Creatinine 1.1 mg/dl (0.8-1.5) 09/14/17 04:50 Est GFR ( Amer) > 60 09/14/17 04:50 Est GFR (Non-Af Amer) > 60 09/14/17 04:50 Random Glucose 89 mg/dL (75-110) 09/14/17 04:50 Calcium 7.9 mg/dL (8.4-10.2) L 09/14/17 04:50 Total Bilirubin 1.8 mg/dl (0.2-1.3) H 09/14/17 04:50 AST 39 U/L (17-59) 09/14/17 04:50 ALT 36 U/L (21-72) 09/14/17 04:50 Alkaline Phosphatase 49 U/L (38-126) 09/14/17 04:50 Troponin I 0.0660 ng/mL (0.00-0.120) 09/12/17 05:30 NT-Pro-B Natriuret Pep 951 pg/ml (0-900) H 09/11/17 12:27 Total Protein 5.3 G/DL (6.3-8.2) L 09/14/17 04:50 Albumin 2.7 g/dL (3.5-5.0) L 09/14/17 04:50 Globulin 2.6 gm/dL (2.2-3.9) 09/14/17 04:50 Albumin/Globulin Ratio 1.0 (1.0-2.1) 09/14/17 04:50 Lipase 69 U/L (23-300) 09/11/17 12:27 Urine Color Straw (YELLOW) 09/12/17 08:00 Urine Clarity Clear (Clear) 09/12/17 08:00 Urine pH 5.0 (5.0-8.0) 09/12/17 08:00 Ur Specific [place] 1.018 (1.003-1.030) 09/12/17 08:00 Urine Protein Negative mg/dL (NEGATIVE) 09/12/17 08:00 Urine Glucose (UA) Neg mg/dL (Normal) 09/12/17 08:00 Urine Ketones Negative mg/dL (NEGATIVE) 09/12/17 08:00 Urine Blood Negative (NEGATIVE) 09/12/17 08:00 Urine Nitrate Negative (NEGATIVE) 09/12/17 08:00 Urine Bilirubin Negative (NEGATIVE) 09/12/17 08:00 Urine Urobilinogen 0.2-1.0 mg/dL (0.2-1.0) 09/12/17 08:00 Ur Leukocyte Esterase Neg Eileen/uL (Negative) 09/12/17 08:00 Urine RBC (Auto) < 1 /hpf (0-3) 09/12/17 08:00 Urine Microscopic WBC 2 /hpf (0-5) 09/12/17 08:00 Stool Occult Blood Positive (NEGATIVE) H 09/11/17 19:20 Blood Type A POSITIVE 09/12/17 09:14 Blood Type Confirm A POSITIVE 09/12/17 11:07 Antibody Screen Negative 09/12/17 09:14 Crossmatch See Detail 09/12/17 09:14 BBK History Checked No verified bt 09/12/17 09:14 - Hospital Course Hospital Course: 87 y/o male with a PMHx of HTN, TIA and CAD s/p NATHAN to prox LAD on 03/02/17 admitted for evaluation of upper GI bleeding. -Brilinta and Aspirin were stopped as per manager benefit initally due to GI bleed -Pt received 4 units of PRBC's, 2 units on 09/12/17 and 2 units on the night of 09/13/17. -Endoscopy performed by Dr Reyes, showed erosive gastritis, no active bleeding Repeated H/H (09/14/17) showed 11.5/33.1, from 10.2/30.1 earlier in the day. Pt hemodinamically stable, afebrile, with NO more episodes of hematemesis. Pt will f/u with PMD within 1 week and GI for colonoscopy. Discharge was held yesterday due to transportation issues. Patient to be transported today at 10:00am MEDS: Pt to resume home medications including Brillinta and Aspirin. PO Pantoprazole 40mg daily was added. - Date & Time of H&P Date of H&P: 09/11/17 Time of H&P: 17:19 Discharge Exam - Head Exam Head Exam: ATRAUMATIC - Eye Exam Eye Exam: Normal appearance - Respiratory Exam Respiratory Exam: Clear to PA & Lateral, NORMAL BREATHING PATTERN, UNREMARKABLE - Cardiovascular Exam Cardiovascular Exam: REGULAR RHYTHM, RRR, +S1, +S2 - GI/Abdominal Exam GI & Abdominal Exam: Normal Bowel Sounds, Soft. absent: Guarding, Rebound, Tenderness - Extremities Exam Extremities exam: normal inspection - Back Exam Back exam: NORMAL INSPECTION - Neurological Exam Neurological exam: Alert, Oriented x3 - Psychiatric Exam Psychiatric exam: Normal Affect, Normal Mood - Skin Skin Exam: Dry, Intact, Normal Color, Warm Discharge Plan - Discharge Medications Prescriptions: Pantoprazole Sodium [Protonix] 40 mg PO DAILY #30 ect - Follow Up Plan Condition: FAIR Disposition: HOME/ ROUTINE Instructions: Gastrointestinal Bleeding (DC) Additional Instructions: -Please f/u with PCP within 1 week. -F/U with GI specialist, Dr Reyes for colonoscopy procedure. -Continue with your home medications. Referrals: Sadi Forman MD [Staff Provider] - Charly Vazquez MD [Family Provider] - Brenden Reyes MD, PhD [Staff Provider] -
--- NOTE | 2017-09-17 08:39 | CON ---
DATE: 09/12/2017 REFERRING DOCTOR: . REASON FOR CONSULTATION: . HISTORY OF PRESENT ILLNESS: This is an 87-year-old male who comes in with abdominal discomfort the patient has no pain per se, he has some no more cramping. No overt hematemesis. Currently, lying in bed comfortable, in no apparent distress. PAST MEDICAL HISTORY: As above. PAST SURGICAL HISTORY: As above. MEDICATIONS: Have been reviewed. REVIEW OF SYSTEMS: All other systems have been reviewed and are negative apart from the HPI. PHYSICAL EXAMINATION: VITAL SIGNS: Here in the hospital, grossly unremarkable. GENERAL: This is a pleasant elderly-appearing male, lying in bed comfortably, in no apparent distress. HEENT: Head: Normocephalic, atraumatic. Eyes: Pupils equal, round and reactive to light bilaterally. No conjunctival pallor or icterus. NECK: Supple. Normal range of motion. No lymphadenopathy appreciated. LUNGS: Coarse breath sounds bilaterally. HEART: S1 and S2, regular rate and rhythm. No murmurs appreciated. ABDOMEN: Soft, nontender. Bowel sounds present. No rebound. No guarding. RECTAL: Deferred. EXTREMITIES: Pulses felt bilaterally. SKIN: Warm, dry and intact. NEUROLOGIC: A and O x3. LABORATORY DATA: Labs and radiology have been reviewed. Radiology with CT, which shows some mesenteric changes and this is again IV contrast only. Labs include WBC of initially 12.8 then now today 11.9, hemoglobin of 7.3, 21.4 hematocrit. Creatinine is 1.2. Troponins are negative. ASSESSMENT AND PLAN: This is an 87-year-old male with . From GI standpoint, cardiac clearance. We will plan for endoscopy as soon as possible. Transfuse as needed . Thank you for the consult. Brenden Reyes MD/ PhD cc:
== END 2017-09-15 10:55 | disposition home or self-care (01) | DRG 378 ==
LOC: H.ER 11:35 → H.ERHOLD 15:27 → H.TEL 22:01 → OBSVTOIN 09-12 20:02
PROVIDERS: ADMIT Family Medicine; ATTEND Family Medicine
PROC: 30233N1 Transfusion of Nonautologous Red Blood Cells into Peripheral Vein, Percutaneous Approach (ICD-10-PCS; 2017-09-12)
PROC: 0DB68ZX Excision of Stomach, Via Natural or Artificial Opening Endoscopic, Diagnostic (ICD-10-PCS; principal; 2017-09-14 10:30)
DX: K92.2 Gastrointestinal hemorrhage, unspecified (principal); D62 Acute posthemorrhagic anemia; I50.32 Chronic diastolic (congestive) heart failure; D72.829 Elevated white blood cell count, unspecified; H35.30 Unspecified macular degeneration; I11.0 Hypertensive heart disease with heart failure; I25.10 Atherosclerotic heart disease of native coronary artery without angina pectoris; I35.0 Nonrheumatic aortic (valve) stenosis; K29.60 Other gastritis without bleeding; K57.30 Diverticulosis of large intestine without perforation or abscess without bleeding; N40.0 Benign prostatic hyperplasia without lower urinary tract symptoms; Z79.82 Long term (current) use of aspirin; Z79.899 Other long term (current) drug therapy; Z86.73 Personal history of transient ischemic attack (TIA), and cerebral infarction without residual deficits; Z95.5 Presence of coronary angioplasty implant and graft; R26.81 Unsteadiness on feet; K31.9 Disease of stomach and duodenum, unspecified; K44.9 Diaphragmatic hernia without obstruction or gangrene